=== PATIENT | male | born 1995 | race Caucasian/White ===

== ENCOUNTER 2017-08-20 10:38 | Inpatient (IN) | payer BC, OTHER ==
[~2017-08-20] VITALS: Ht 188 cm; Wt 86.2 kg
[2017-08-20] MEDS ORDERED: NS IV 1000 ML 1,000 ML IV SCH ×2 (10:45→12:45)
[2017-08-20] MEDS ORDERED: IBUPROFEN 800 MG (MOTRIN) TAB PO ONE (10:45)
--- NOTE | 2017-08-20 10:51 | ED General ---
General Stated Complaint: POST PROCEDURE ALLERGIC REACTION,FEVER Source of Information: Patient Exam Limitations: No Limitations History of Present Illness Time Seen by Provider: 10:47 Initial Comments To ER wit c/o sudden onset fever today up to "107" at home. He had outpatient wart removal by Dr Garcia yesterday afternoon to left hand and is concerned these symptoms may represent an allergic reaction. He does report increased swelling/ pain in the left hand. He did develop a sore throat and a cough today as well. Was started on medrol dosepak and antibiotics at home and states that he took the first doses of these last night and also took his dose this morning. Primary care is Dr. Hammonds in [place]. He is employed at [employer] in [place]. His accompanies him to ER. Timing/Duration: 1-2 Days Severity: Moderate Associated Systoms: Cough, Fever/Chills, Malaise Allergies and Home Medications Allergies Coded Allergies: No Known Drug Allergies (Unverified , 08/20/17) Constitutional: see HPI, chills, fever EENTM: see HPI, throat pain Respiratory: see HPI, cough Cardiovascular: no symptoms reported Genitourinary: no symptoms reported Musculoskeletal: no symptoms reported Skin: no symptoms reported Psychiatric/Neurological: No Symptoms Reported Hematologic/Lymphatic: No Symptoms Reported Immunological/Allergic: no symptoms reported Past Gwbceqp-Pjhwyl-Iceuir Hx Patient Social History Recent Foreign Travel: No Contact w/Someone Who Travel: No Physical Exam Vital Signs Vital Sign - Last 12Hours 08/20/17 10:40 Temp 103.5 Pulse 108 Resp 14 B/P (MAP) 148/86 Pulse Ox 98 O2 Delivery Room Air Capillary Refill : General Appearance: No Apparent Distress, WD/WN Eyes: Bilateral Eye Normal Inspection, Bilateral Eye PERRL, Bilateral Eye EOMI HEENT: PERRL/EOMI, TMs Normal, Pharyngeal Erythema Neck: Full Range of Motion, Normal Inspection Respiratory: Normal Breath Sounds, No Accessory Muscle Use, No Respiratory Distress Cardiovascular: Normal Peripheral Pulses, Tachycardia Gastrointestinal: Normal Bowel Sounds, Non Tender, Soft Extremity: Normal Capillary Refill, Normal Inspection, Other (there is significant swelling to the left hand with surrounding erythema. The incision is intact there is some serosanguineous drainage from this to the ulnar side dorsal aspect left wrist. Culture of this drainage was collected and sent to lab.) Neurologic/Psychiatric: Alert, Oriented x3, No Motor/Sensory Deficits Skin: Normal Color, Warm/Dry Focused Exam Evaluation Lactate Level Laboratory Tests 08/20/17 11:25: Lactic Acid Level 1.56 Lactic Acid Level Laboratory Tests Test 08/20/17 11:25 Lactic Acid Level 1.56 MMOL/L (0.50-2.00) Progress/Results/Core Measures Suspected Sepsis SIRS Temperature: Pulse: Respiratory Rate: Laboratory Tests 08/20/17 10:45: White Blood Count 24.6H Blood Pressure / Mean: Laboratory Tests 08/20/17 11:25: Lactic Acid Level 1.56 Laboratory Tests 08/20/17 10:45: Creatinine 0.97, Platelet Count 216, Total Bilirubin 0.7 Results/Orders Lab Results Laboratory Tests Test 08/20/17 10:45 08/20/17 11:05 08/20/17 11:25 Range/Units White Blood Count 24.6 H 4.3-11.0 10^3/uL Red Blood Count 5.02 4.35-5.85 10^6/uL Hemoglobin 14.5 13.3-17.7 G/DL Hematocrit 41 40-54 % Mean Corpuscular Volume 82 80-99 FL Mean Corpuscular Hemoglobin 29 25-34 PG Mean Corpuscular Hemoglobin Concent 36 32-36 G/DL Red Cell Distribution Width 11.5 10.0-14.5 % Platelet Count 216 130-400 10^3/uL Mean Platelet Volume 9.1 7.4-10.4 FL Neutrophils (%) (Auto) 92 H 42-75 % Lymphocytes (%) (Auto) 2 L 12-44 % Monocytes (%) (Auto) 6 0-12 % Eosinophils (%) (Auto) 0 0-10 % Basophils (%) (Auto) 0 0-10 % Neutrophils # (Auto) 22.5 H 1.8-7.8 X 10^3 Lymphocytes # (Auto) 0.5 L 1.0-4.0 X 10^3 Monocytes # (Auto) 1.5 H 0.0-1.0 X 10^3 Eosinophils # (Auto) 0.0 0.0-0.3 10^3/uL Basophils # (Auto) 0.0 0.0-0.1 10^3/uL Neutrophils % (Manual) 87 % Lymphocytes % (Manual) 2 % Monocytes % (Manual) 3 % Band Neutrophils 8 % Toxic Granulation 1+ Blood Morphology Comment NORMAL Sodium Level 136 135-145 MMOL/L Potassium Level 4.0 3.6-5.0 MMOL/L Chloride Level 104 98-107 MMOL/L Carbon Dioxide Level 22 21-32 MMOL/L Anion Gap 10 5-14 MMOL/L Blood Urea Nitrogen 13 7-18 MG/DL Creatinine 0.97 0.60-1.30 MG/DL Estimat Glomerular Filtration Rate > 60 BUN/Creatinine Ratio 13 Glucose Level 134 H 70-105 MG/DL Calcium Level 9.4 8.5-10.1 MG/DL Total Bilirubin 0.7 0.1-1.0 MG/DL Aspartate Amino Transf (AST/SGOT) 17 5-34 U/L Alanine Aminotransferase (ALT/SGPT) 23 0-55 U/L Alkaline Phosphatase 60 40-136 U/L C-Reactive Protein High Sensitivity 3.94 H 0.00-0.50 MG/DL Total Protein 7.6 6.4-8.2 GM/DL Albumin 4.2 3.2-4.5 GM/DL Monoscreen NEGATIVE NEGATIVE Group A Streptococcus Screen NEGATIVE NEGATIVE Lactic Acid Level 1.56 0.50-2.00 MMOL/L Micro Results Microbiology 08/20/17 Influenza Types A,B Antigen (TERRY) - Final, Complete My Orders Orders - DIALLO KUMAR APRN Cbc With Automated Diff (08/20/17 10:45) Comprehensive Metabolic Panel (08/20/17 10:45) Hs C Reactive Protein (08/20/17 10:45) Saline Lock/Iv-Start (08/20/17 10:45) Ibuprofen Tablet (Motrin Tablet) (08/20/17 10:45) Ns Iv 1000 Ml (Sodium Chloride 0.9%) (08/20/17 10:45) Rapid Strep A Screen (08/20/17 10:45) Monotest (08/20/17 10:45) Influenza A And B Antigens (08/20/17 10:45) Chest Pa/Lat (2 View) (08/20/17 10:45) Manual Differential (08/20/17 10:45) Blood Culture (08/20/17 11:20) Lactic Acid Analyzer (08/20/17 11:20) Ceftriaxone Injection (Rocephin Injectio (08/20/17 11:45) Vancomycin Injection (Vancomycin Injecti (08/20/17 11:45) Wound Culture (08/20/17 11:44) Acetaminophen Tablet (Tylenol Tablet) (08/20/17 12:00) Ua Culture If Indicated (08/20/17 11:57) Medications Given in ED Current Medications Medications Dose Ordered Sig/Aye Route Start Time Stop Time Status Last Admin Dose Admin Acetaminophen 1,000 mg ONCE ONCE PO 08/20/17 12:00 08/20/17 12:01 DC 08/20/17 11:59 1,000 MG Ceftriaxone Sodium 1000 mg/ Sodium Chloride 50 ml @ 100 mls/hr ONCE ONCE IV 08/20/17 11:45 08/20/17 12:14 08/20/17 11:56 100 MLS/HR Ibuprofen 800 mg ONCE ONCE PO 08/20/17 10:45 08/20/17 10:48 DC 08/20/17 10:53 800 MG Vital Signs/I&O Vital Sign - Last 12Hours 08/20/17 10:40 Temp 103.5 Pulse 108 Resp 14 B/P (MAP) 148/86 Pulse Ox 98 O2 Delivery Room Air Capillary Refill : Diagnostic Imaging Diagonstic Imaging: Xray Comments NAME: BONITA RICO MED REC#: [id number] PT STATUS: REG ER : 1995 PHYSICIAN: DIALLO KUMAR APRN ADMIT DATE: 08/20/17/ER Draft Date of Exam:08/20/17 CHEST PA/LAT (2 VIEW) INDICATION: Fever and dyspnea PA and lateral views of the chest are obtained. No previous studies available at this time for comparison. FINDINGS: Heart size and pulmonary vascularity are within normal limits, and the lungs are clear, bilaterally. IMPRESSION: Unremarkable chest. Dictated on workstation # [id number] Dict: 08/20/17 1111 Trans: 08/20/17 1119 HYACINTH [id number] Interpreted by: ZAID EARL MD Electronically signed by: Departure Communication (Admissions) Time/Spoke to Admitting Phy: 12:[address] Simons. She agrees to accept the admission, Rocephin and vancomycin Time/Spoke to Consulting Phy: 12:05 Communication/Consulting I did discuss with Dr. Garcia. He agrees to consult. Progress Notes 1153- BP 124/63 Temp 103. 1 liter IVF has infused, rocephin and vancomycin ordered as well as 1 g tylenol. Impression Impression: Primary Impression: Cellulitis of left upper extremity Additional Impressions: Sepsis Viral syndrome Disposition: ADMITTED INPATIENT Condition: Stable Admissions Decision to Admit Reason: Admit from ER (General) Decision to Admit/Date: Aug 20, 2017 Time/Decision to Admit Time: 11:54 Departure-Patient Inst. Referrals: JOHNSON CRABTREE MD (PCP/Family) Primary Care Physician DIALLO KUMAR APRN Aug 20, 2017 10:51
[2017-08-20 10:59] LABS: BASOPHILS % (AUTO) 0 % (0-10); EOSINOPHILS % (AUTO) 0 % (0-10); LYMPHOCYTES # (AUTO) 0.5 X 10^3 (1.0-4.0); LYMPHOCYTES % (AUTO) 2 % (12-44); MEAN CORPUSCULAR HEMOGLOBIN 29 PG (25-34); MEAN CORPUSCULAR HGB CONC 36 G/DL (32-36); MEAN CORPUSCULAR VOLUME 82 FL (80-99); MEAN PLATELET VOLUME 9.1 FL (7.4-10.4); MONOCYTES # (AUTO) 1.5 X 10^3 (0.0-1.0); MONOCYTES % (AUTO) 6 % (0-12); NEUTROPHILS # (AUTO) 22.5 X 10^3 (1.8-7.8); NEUTROPHILS % (AUTO) 92 % (42-75); PLATELET COUNT 216 10^3/uL (130-400); RED BLOOD COUNT 5.02 10^6/uL (4.35-5.85); RED CELL DISTRIBUTION WIDTH 11.5 % (10.0-14.5); WHITE BLOOD COUNT 24.6 10^3/uL (4.3-11.0)
[2017-08-20 11:13] LABS: ALANINE AMINOTRANSFERASE 23 U/L (0-55); ALBUMIN 4.2 GM/DL (3.2-4.5); ANION GAP 10 MMOL/L (5-14); ASPARTATE AMINO TRANSFERASE 17 U/L (5-34); BILIRUBIN,TOTAL 0.7 MG/DL (0.1-1.0); BLOOD UREA NITROGEN 13 MG/DL (7-18); BUN/CREATININE RATIO 13; CALCIUM 9.4 MG/DL (8.5-10.1); CARBON DIOXIDE 22 MMOL/L (21-32); CHLORIDE 104 MMOL/L (98-107); CREATININE SERUM 0.97 MG/DL (0.60-1.30); GFR ESTIMATED > 60; GLUCOSE 134 MG/DL (70-105); SODIUM 136 MMOL/L (135-145); TOTAL PROTEIN 7.6 GM/DL (6.4-8.2); hs C REACTIVE PROTEIN 3.94 MG/DL (0.00-0.50)
--- NOTE | 2017-08-20 11:19 | Diagnostic Imaging Report ---
INDICATION: Fever and dyspnea PA and lateral views of the chest are obtained. No previous studies available at this time for comparison. FINDINGS: Heart size and pulmonary vascularity are within normal limits, and the lungs are clear, bilaterally. IMPRESSION: Unremarkable chest. Dictated by: Dictated on workstation # [id number]
[2017-08-20 11:25] LABS: BAND NEUTROPHILS 8 %; LYMPHOCYTES % (MANUAL) 2 %; NEUTROPHILS % (MANUAL) 87 %
[2017-08-20] MEDS ORDERED: VANCOMYCIN INJECTION 1,500 MG in NS IV 500 ML 500 ML IV SCH (11:45)
[2017-08-20] MEDS ORDERED: cefTRIAXone INJECTION 1,000 MG in NS (IVPB) 50 ML IV ONE (11:45)
[2017-08-20] MEDS ORDERED: ACETAMINOPHEN 500 MG TAB (TYLENOL) PO ONE (12:00)
[2017-08-20] MEDS ORDERED: CATHETER FLUSH 10 ML SYR IV PRN (12:45)
[2017-08-20] MEDS ORDERED: ACETAMINOPHEN 325 MG TABLET/CAPLET (TYLENOL) PO PRN (12:45)
[2017-08-20] MEDS ORDERED: HYDROcodone/APAP 5 MG/325 MG (LORTAB) TAB PO PRN (13:00)
[2017-08-20] MEDS ORDERED: fentaNYL INJECTION 100 MCG/2 ML AMP IVP PRN (13:00)
[2017-08-20] MEDS ORDERED: SODIUM CHLORIDE IV NR ×2 (13:00)
[2017-08-20] MEDS ORDERED: VANCOMYCIN IV NR ×2 (13:00)
[2017-08-20] MEDS ORDERED: VANCOMYCIN INJECTION 0.1 MG in NS (IVPB) 250 ML IV SCH (13:00)
[2017-08-20 13:01] VITALS: BP 135/67
--- NOTE | 2017-08-20 13:23 | History & Physical-Hospitalist ---
HPI History of Present Illness: HPI/Chief Complaint Pt is a 22yCF who underwent an outpatient wart removal yesterday with Dr. Garcia. He reports the surgery went well and then this morning he developed a high fever (reportedly ~106) along with chills and body aches. He had a slight headache at the time as well. He called Dr Garcia's office and was told to go to the ER for evaluation. He has also noticed hand swelling and redness. He denies any other complaints and had been feeling well up until this morning. Though per ER note he was start on a medrol dosepak and antibiotics last night. He was found to have a WBC of ~24k, fever of 103, and was tachycardiac meeting sepsis criteria and admitted for IV abx. Source: patient Date Seen 08/20/17 Time Seen by Provider: 13:00 Attending Physician Antonio Cobian MD PCP Hubert Triplett MD Referring Physician Date of Admission Aug 20, 2017 at 11:38 am Home Medications & Allergies Home Medications Reviewed patient Home Medication Reconciliation Form Allergies Allergies Coded Allergies No Known Drug Allergies (Dmotmnugrl65/22/17) Past Srqqqpq-Cewwop-Xjdore Hx Patient Social History Marrital Status: Employed/Student: employed Alcohol Use: Occasionally Uses Recreational Drug Use: No Smoking Status: Never a Smoker 2nd Hand Smoke Exposure: No Recent Foreign Travel: No Contact w/other who traveled: No Recent Hopitalizations: No Recent Infectious Disease Expo: No Seasonal Allergies Seasonal Allergies: No Surgeries Yes (WART REMOVED) Appendectomy Respiratory No Cardiovascular No Neurological No Genitourinary No Gastrointestinal No Musculoskeletal No Endocrine History of Endocrine Disorders: No HEENT History of HEENT Disorders: No Cancer No Psychosocial History of Psychiatric Problem: No Integumentary History of Skin or Integumenta: No Family Medical History Significant Family History: Diabetes (grandparents) Review of Systems Constitutional: No chills, No fever EENTM: No blurred vision, No double vision, No nose congestion, No throat pain Respiratory: No cough, No dyspnea on exertion, No short of breath Cardiovascular: No chest pain, No edema, No palpitations Gastrointestinal: No abdominal pain, No constipation, No diarrhea, No nausea, No vomiting Genitourinary: No dysuria, No frequency Musculoskeletal: other (left hand swelling and pain) Skin: No lesions, No rash Psychiatric/Neurological: Denies Headache, Denies Numbness, Denies Paresthesia , Denies Tingling Physical Exam Physical Exam Vital Signs Vital Sign - Last 12Hours 08/20/17 10:40 Temp 103.5 Pulse 108 Resp 14 B/P (MAP) 148/86 Pulse Ox 98 O2 Delivery Room Air Capillary Refill : Less Than 3 Seconds General Appearance: No Apparent Distress, WD/WN HEENT: PERRL/EOMI, Moist Mucous Membranes Neck: Non Tender, Supple Respiratory: Lungs Clear, No Respiratory Distress Cardiovascular: Regular Rate, Rhythm, No Murmur Gastrointestinal: Normal Bowel Sounds, Non Tender, Soft Extremity: Normal Capillary Refill, No Calf Tenderness, Other (edema of left hand (mostlyon the dorsum), line of demarcation noted with almost no identifiable erythema) Neurologic/Psychiatric: Alert, Oriented x3, Normal Mood/Affect Skin: Normal Color, Warm/Dry Results Results/Procedures Lab Laboratory Tests 08/20/17 10:45 Assessment/Plan Admission Diagnosis Sepsis due to Cellulitis Diagnosis/Problems Diagnosis/Problems (1) Sepsis Status: Acute Assessment & Plan: 3/4 SIRS and apparent cellulitis of LUE Vanc and Rocephin started in ER Will continue until cultures available but likely MSSA given quick onset and already improved erythema Blood and wound cultures obtained in ER Lactic normal, no hypotension- not severe sepsis Tylenol for fever Qualifiers: Qualified Codes: A41.9 - Sepsis, unspecified organism (2) Cellulitis of left upper extremity Status: Acute Assessment & Plan: As above Will consult Dr Garcia as this is site of wart removal (3) Elevated blood pressure reading Status: Acute Assessment & Plan: Likely due to pain Trend (4) Prophylactic measure Assessment & Plan: NS at 100ml/hr SCDs Reg Diet ANTONIO COBIAN MD Aug 20, 2017 1:23 pm
[2017-08-20] MEDS ORDERED: INFLUENZA TRIvalent 2017-2018 0.5 ML/45 MCG SYR IM ONE (14:00)
[2017-08-20] MEDS ORDERED: METH4TAB10 PO (14:09)
[2017-08-20] MEDS ORDERED: AMOX1TAB12 PO (14:09)
[2017-08-20] MEDS ORDERED: HYDR-3820 PO (14:09)
[2017-08-20] MEDS: NS IV 1000 ML 1,000 ML IV SCH ×2 (14:12→23:14)
[2017-08-20 14:52] LABS: BILIRUBIN,URINE NEGATIVE (NEGATIVE); KETONES,URINE NEGATIVE (NEGATIVE); LEUKOCYTE ESTERASE ,URINE NEGATIVE (NEGATIVE); NITRITE,URINE NEGATIVE (NEGATIVE); PH,URINE 6.5 (5-9); PROTEIN,URINE NEGATIVE (NEGATIVE); UROBILINOGEN,URINE NORMAL (NORMAL)
[2017-08-20 15:02] LABS: SQUAMOUS EPITHELIAL CELL,UR RARE /HPF
[2017-08-20 16:00] VITALS: BP 109/70
--- NOTE | 2017-08-20 17:37 | CONSULTATION REPORT ---
DATE OF SERVICE: 08/20/2017 PRIMARY CARE PHYSICIAN: Dr. Hubert Triplett. ADMITTING PHYSICIAN: Dr. Jessica Cobian. HISTORY OF PRESENT ILLNESS: The patient is a 22-year-old male known to us. 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 He states that he developed a wart-like lesion along the dorsal surface of his left wrist for several weeks and this had become irritated with the amount of activities that he did. He reported developing a mild surrounding redness and erythema around the area, which became irritating. He underwent excision of a lesion in the office yesterday. He reports that he did well; however, last night developed some swelling in the region as well as pain. He woke up and the pain was significantly worse. He was seen in the office again and started on prednisone-tapering dose as well as antibiotics. He reports that once they went home, he felt worse and developed fevers and fatigue. He was seen in Emergency Department and underwent workup and was found to have a leukocytosis of approximately 23.5 as well as a fever of 103. Upon examination, he does have fresh excision site of skin lesion with surrounding edema along the dorsal aspect of the wrist extending into the hand. This does not go proximal to the wrist. He is since being admitted and placed on IV antibiotics as well as fluids. He states that he has felt much better. He can move all of his fingers and there are no signs of compartment syndrome of the hand. PAST MEDICAL HISTORY: None. PAST SURGICAL HISTORY: Appendectomy. ALLERGIES: No known drug allergies. MEDICATIONS: None. SOCIAL HISTORY: Negative smoke, social alcohol. FAMILY HISTORY: Noncontributory. VITAL SIGNS: Temperature 100.3. Systolic blood pressure is stable in the 120s. Heart rate in the 60s to 80s. REVIEW OF SYSTEMS: Well-nourished male, currently in no acute distress. He is not experiencing any shortness of breath or difficulty breathing. No chest pain, palpitations, or diaphoresis. No nausea or vomiting. No diarrhea or constipation. Mild chill this morning and found to have hyperpyrexia by thermometer later this morning. No recent inadvertent weight loss. All other review of systems negative. PHYSICAL EXAMINATION: CHEST: Clear. Good breath sounds bilaterally. HEART: Regular, no murmurs. HEENT: No scleral icterus. NECK: No cervical lymphadenopathy. EXTREMITIES: No lower extremity edema, negative Homans' sign. ABDOMEN: Soft, nontender, nondistended. SKIN: There is edema along the dorsal aspect of the distal left wrist extending into the hand and fingers. He can move all fingers with minimal discomfort. There are no signs of compartment syndrome. He has full sensation. The wound is clean with clear serous drainage. LABORATORY DATA: WBC 24.6, hemoglobin 14.5, hematocrit 41, platelets 216, BUN 13, creatinine 0.97. [place] screen negative. Group A streptococcus negative. ASSESSMENT AND PLAN: 22-year-old male with a cellulitis of the dorsal aspect of the distal left wrist and hand with fever and chills. We are unsure if his symptoms are related to an early infection versus an allergic reaction. This may be coexisting with a viral etiology as well. Since being admitted and placed on IV fluids and IV antibiotics, he has felt considerably better and has had decreased swelling and edema. The sutures were removed and only clear fluid was identified within clean margins of the skin excision site. This was packed with wet to dry dressing followed by a cling wrap followed by a 2-inch Tra wrap from the mid hand to above the wrist. If his clinical status improves despite the leukocytosis, which may be secondary to the steroids, we will recommend discharging him home and to proceed with wet to dry dressing changes, compression and elevation on a b.i.d. basis and he may be discharged to home and have him follow up in the office in approximately 1 week for reevaluation. Job ID: [id number] DocumentID: [id number] Dictated Date: 08/20/2017 16:41:54 Inside Wireman Date: 08/20/2017 17:36:57 Dictated By: WILIAM CHACKO MD [facility]EE HOSPITALBrittany
[2017-08-20] MEDS: IBUPROFEN 800 MG (MOTRIN) TAB PO PRN (19:35)
[2017-08-20] MEDS: ACETAMINOPHEN 500 MG TAB (TYLENOL) PO PRN (19:35)
[2017-08-20 20:19] VITALS: BP 133/75
[2017-08-20] MEDS: VANCOMYCIN 1500 MG/NS 500 ML IVPB IV SCH ×2 (23:14)
[2017-08-21] VITALS: BP 112/52
[2017-08-21 04:00] VITALS: BP 123/59
[2017-08-21 05:34] LABS: BASOPHILS % (AUTO) 0 % (0-10); EOSINOPHILS # (AUTO) 0.1 10^3/uL (0.0-0.3); EOSINOPHILS % (AUTO) 0 % (0-10); LYMPHOCYTES # (AUTO) 0.7 X 10^3 (1.0-4.0); LYMPHOCYTES % (AUTO) 3 % (12-44); MEAN CORPUSCULAR HEMOGLOBIN 29 PG (25-34); MEAN CORPUSCULAR HGB CONC 35 G/DL (32-36); MEAN CORPUSCULAR VOLUME 83 FL (80-99); MEAN PLATELET VOLUME 9.4 FL (7.4-10.4); MONOCYTES # (AUTO) 1.9 X 10^3 (0.0-1.0); MONOCYTES % (AUTO) 7 % (0-12); NEUTROPHILS # (AUTO) 25.4 X 10^3 (1.8-7.8); NEUTROPHILS % (AUTO) 90 % (42-75); PLATELET COUNT 186 10^3/uL (130-400); RED BLOOD COUNT 4.53 10^6/uL (4.35-5.85); RED CELL DISTRIBUTION WIDTH 11.9 % (10.0-14.5); WHITE BLOOD COUNT 28.2 10^3/uL (4.3-11.0)
[2017-08-21 05:50] LABS: ANION GAP 9 MMOL/L (5-14); BLOOD UREA NITROGEN 12 MG/DL (7-18); BUN/CREATININE RATIO 15; CALCIUM 8.8 MG/DL (8.5-10.1); CARBON DIOXIDE 23 MMOL/L (21-32); CHLORIDE 109 MMOL/L (98-107); CREATININE SERUM 0.79 MG/DL (0.60-1.30); GFR ESTIMATED > 60; GLUCOSE 109 MG/DL (70-105); POTASSIUM 4.2 MMOL/L (3.6-5.0); SODIUM 141 MMOL/L (135-145)
[2017-08-21] MEDS: IBUPROFEN 800 MG (MOTRIN) TAB PO PRN (05:50)
[2017-08-21] MEDS ORDERED: CEPH-507 PO (07:02)
[2017-08-21 08:00] VITALS: BP 109/52
[2017-08-21] MEDS: NS IV 1000 ML 1,000 ML IV SCH (09:00)
[2017-08-21] MEDS ORDERED: cefTRIAXone 1 GM/NS 50 ML IVPB IV SCH ×2 (09:00)
[2017-08-21] MEDS ORDERED: cefTRIAXone INJECTION 1,000 MG in NS (IVPB) 50 ML IV SCH (09:00)
--- NOTE | 2017-08-21 09:55 | Discharge Summary-Hospitalist ---
Diagnosis/Chief Complaint Date of Admission Aug 20, 2017 at 11:38 am Date of Discharge Admission Diagnosis Sepsis due to Cellulitis Discharge Diagnosis (1) Sepsis Status: Resolved Assessment & Plan: 3/4 SIRS present on admission and apparent cellulitis of LUE Received 2 days IV abx inpatient GAS on culture Was on Augmentin prior to admission so will escalate to Keflex (2) Cellulitis of left upper extremity Status: Acute Assessment & Plan: As above Dr Chacko consulted, appreciate recs (3) Elevated blood pressure reading Status: Resolved Assessment & Plan: Likely due to pain Trend (4) Prophylactic measure Assessment & Plan: NS at 100ml/hr SCDs Reg Diet Discharge Summary Consultations Dr Chacko, surgery Discharge Physical Examination Allergies: Coded Allergies: No Known Drug Allergies (Unverified , 08/20/17) Vitals & I&Os Vital Signs Date Time Temp Pulse Resp B/P (MAP) Pulse Ox O2 Delivery O2 Flow Rate FiO2 08/21/17 08:00 98.9 88 24 109/52 96 Room Air Hospital Course Pt presented to the ER with CC of hand swelling and pain and was found to have sepsis due to cellulitis of the hand following wart removal the day prior to admission. He was admitted for IV abx has he had already failed outpatient Augmentin. His symptoms improved dramatic with abx. Cultures grew GAS and he was transitioned to oral Keflex after receiving 2 days IV abx. He is to follow up with Dr Chacko in 1 week. Labs (last 24 hrs) Laboratory Tests 08/20/17 10:45: White Blood Count 24.6H, Red Blood Count 5.02, Hemoglobin 14.5, Hematocrit 41, Mean Corpuscular Volume 82, Mean Corpuscular Hemoglobin 29, Mean Corpuscular Hemoglobin Concent 36, Red Cell Distribution Width 11.5, Platelet Count 216, Mean Platelet Volume 9.1, Neutrophils (%) (Auto) 92H, Lymphocytes (%) (Auto) 2L , Monocytes (%) (Auto) 6, Eosinophils (%) (Auto) 0, Basophils (%) (Auto) 0, Neutrophils # (Auto) 22.5H, Lymphocytes # (Auto) 0.5L, Monocytes # (Auto) 1.5H, Eosinophils # (Auto) 0.0, Basophils # (Auto) 0.0, Neutrophils % (Manual) 87, Lymphocytes % (Manual) 2, Monocytes % (Manual) 3, Band Neutrophils 8, Toxic Granulation 1+, Blood Morphology Comment NORMAL, Sodium Level 136, Potassium Level 4.0, Chloride Level 104, Carbon Dioxide Level 22, Anion Gap 10, Blood Urea Nitrogen 13, Creatinine 0.97, Estimat Glomerular Filtration Rate > 60, BUN/ Creatinine Ratio 13, Glucose Level 134H, Calcium Level 9.4, Total Bilirubin 0.7 , Aspartate Amino Transf (AST/SGOT) 17, Alanine Aminotransferase (ALT/SGPT) 23, Alkaline Phosphatase 60, C-Reactive Protein High Sensitivity 3.94H, Total Protein 7.6, Albumin 4.2, Monoscreen NEGATIVE 08/20/17 11:05: Group A Streptococcus Screen NEGATIVE 08/20/17 11:25: Lactic Acid Level 1.56 08/20/17 14:45: Urine Color YELLOW, Urine Clarity CLEAR, Urine pH 6.5, Urine Specific [place] 1.010L, Urine Protein NEGATIVE, Urine Glucose (UA) NEGATIVE, Urine Ketones NEGATIVE, Urine Nitrite NEGATIVE, Urine Bilirubin NEGATIVE, Urine Urobilinogen NORMAL, Urine Leukocyte Esterase NEGATIVE, Urine RBC (Auto) NEGATIVE, Urine RBC NONE, Urine WBC NONE, Urine Squamous Epithelial Cells RARE, Urine Crystals NONE , Urine Bacteria NEGATIVE, Urine Casts NONE, Urine Mucus NEGATIVE, Urine Culture Indicated NO 08/21/17 05:10: White Blood Count 28.2H, Red Blood Count 4.53, Hemoglobin 13.1L, Hematocrit 38L , Mean Corpuscular Volume 83, Mean Corpuscular Hemoglobin 29, Mean Corpuscular Hemoglobin Concent 35, Red Cell Distribution Width 11.9, Platelet Count 186, Mean Platelet Volume 9.4, Neutrophils (%) (Auto) 90H, Lymphocytes (%) (Auto) 3L , Monocytes (%) (Auto) 7, Eosinophils (%) (Auto) 0, Basophils (%) (Auto) 0, Neutrophils # (Auto) 25.4H, Lymphocytes # (Auto) 0.7L, Monocytes # (Auto) 1.9H, Eosinophils # (Auto) 0.1, Basophils # (Auto) 0.0, Sodium Level 141, Potassium Level 4.2, Chloride Level 109H, Carbon Dioxide Level 23, Anion Gap 9, Blood Urea Nitrogen 12, Creatinine 0.79, Estimat Glomerular Filtration Rate > 60, BUN/ Creatinine Ratio 15, Glucose Level 109H, Calcium Level 8.8 Microbiology 08/20/17 Influenza Types A,B Antigen (TERRY) - Final, Complete 08/20/17 Gram Stain - Final, Resulted 08/20/17 Wound Culture - Preliminary, Resulted Strep, Beta Hemolytic Group A Pending Labs Laboratory Tests 08/21/17 05:10: White Blood Count 28.2, Red Blood Count 4.53, Hemoglobin 13.1, Hematocrit 38, Mean Corpuscular Volume 83, Mean Corpuscular Hemoglobin 29, Mean Corpuscular Hemoglobin Concent 35, Red Cell Distribution Width 11.9, Platelet Count 186, Mean Platelet Volume 9.4, Neutrophils (%) (Auto) 90, Lymphocytes (%) (Auto) 3, Monocytes (%) (Auto) 7, Eosinophils (%) (Auto) 0, Basophils (%) (Auto) 0, Neutrophils # (Auto) 25.4, Lymphocytes # (Auto) 0.7, Monocytes # (Auto) 1.9, Eosinophils # (Auto) 0.1, Basophils # (Auto) 0.0, Sodium Level 141, Potassium Level 4.2, Chloride Level 109, Carbon Dioxide Level 23, Anion Gap 9, Blood Urea Nitrogen 12, Creatinine 0.79, Estimat Glomerular Filtration Rate > 60, BUN/ Creatinine Ratio 15, Glucose Level 109, Calcium Level 8.8 Discharge Home Medications: Active Scripts Active Keflex (Cephalexin) 500 Mg Capsule 500 Mg PO BID Reported Hydrocodon-Acetaminophn 10-325 (Hydrocodone/Acetaminophen) 1 Each Tablet 1 Tab PO Q4H PRN Methylprednisolone 4 Mg Tab.ds.pk PO UD 6 Days 6 DAY SUPPLY FILLED 08-20-17 TAKE DIRECTED Amox Tr-K Clv 875-125 mg Tab (Amoxicillin/Potassium Clav) 1 Each Tablet 1 Tab PO BID 10 Days 10 DAY SUPPLY FILLED 08-20-17 Instructions to patient/family Please see electronic discharge instructions given to patient. Clinical Quality Measures DVT/VTE Risk/Contraindication: Risk Factor Score Per Nursin RFS Level Per Nursing on Admit: 1=Low/No VTE PPX Sepsis: Within 3hrs of presentation: Admin ABX, Blood cultures prior to ABX's, D/C Instructions given to patient, Lactate level Copy Copies To 1: WILIAM CHACKO MD; JOHNSON CRABTREE MD Problem Qualifiers (1) Sepsis: Sepsis type: sepsis due to unspecified organism Qualified Codes: A41.9 - Sepsis, unspecified organism ANTONIO BALTAZAR MD Aug 21, 2017 9:55 am
[2017-08-21] MEDS: VANCOMYCIN 1500 MG/NS 500 ML IVPB IV SCH ×2 (10:08)
[2017-08-21] MEDS: ACETAMINOPHEN 500 MG TAB (TYLENOL) PO PRN (10:13)
--- OUTSIDE RECORDS SUMMARY | 2017-08-21 13:18 | XMS REPORT | Continuity of Care Document ---
Demographics Preferred Language Unknown Marital Status Unknown Rastafari Affiliation Unknown Race Unknown Ethnic Group Unknown Author Author [facility] Address Unknown Phone Unavailable Allergies Medications Problems Procedures Results Encounters ACCT No. Visit Date/Time Discharge Status Pt. Type Provider Facility Loc./Unit Complaint [id number] 12/09/2012 14:45:45 RECURRING
--- OUTSIDE RECORDS SUMMARY | 2017-08-21 13:21 | XMS REPORT | Continuity of Care Document ---
Demographics Preferred Language Unknown Marital Status Unknown Presybeterian Affiliation Unknown Race Unknown Ethnic Group Unknown Author Author [facility] Address Unknown Phone Unavailable Allergies Medications Problems Procedures Results Encounters ACCT No. Visit Date/Time Discharge Status Pt. Type Provider Facility Loc./Unit Complaint [id number] 12/09/2012 14:45:45 RECURRING
[2017-08-21] MEDS ORDERED: TROUGH ORDER-PHARMACY XX NR (22:00)
--- NOTE | 2017-08-22 11:37 | CONSULTATION REPORT ---
DATE OF SERVICE: ATTENDING PRIMARY CARE PHYSICIAN: Dr. Hubert Triplett. ADMITTING PHYSICIAN: Dr. Jessica Cobian. HISTORY OF PRESENT ILLNESS: The patient is a 22-year-old male known to us. 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 He developed a wart-like lesion along the dorsal surface of the left wrist for several weeks, which became irritated with the amount of activities that he does. He then reported a mild amount of redness and swelling around the area. He was seen in the office and the lesion was identified and was excised. There are no signs of infection at that time. Following morning, he felt fevers and fatigue and went to the Emergency Department and was found to have leukocytosis as well as fever. He was admitted and started on IV fluids and IV antibiotics and felt considerably better. Due to feeling better with less fevers, we decided to change him to oral antibiotics and discharge him home due to the patient's wishes and the holidays. He reports after being discharged home several hours later, he felt worse again. The swelling of the hand had worsened as well as the pain. Labs again were drawn, which did show a white count of 30. Upon examination, there is edema throughout the hand. There is no crepitance. There is a bulla along the aspect of the first and second webspace. The wound appears to be intact with a mild amount of purulent drainage. There is no drainable abscesses identified. An x-ray was also performed, which showed the potential for small well circumscribed foreign body. Since being admitted for the second time, he does feel better and his white count is coming down to 22 as well as his temperature. He is currently on Zosyn, vancomycin and clindamycin. His hand and forearm compartments are soft. PAST MEDICAL HISTORY: None. PAST SURGICAL HISTORY: Appendectomy. ALLERGIES: No known drug allergies. MEDICATIONS: BACTRIM, OMNICEF. SOCIAL HISTORY: Negative smoke, social alcohol. FAMILY HISTORY: Noncontributory. VITAL SIGNS: Temperature 100.5, blood pressure 104/52, pulse 87, respirations 18, pulse ox 93% on room air. REVIEW OF SYSTEMS: Well-nourished male currently in no acute distress. He is not experiencing any shortness of breath or difficulty breathing. No chest pain, palpitations, diaphoresis. Mild nausea, no vomiting, intermittent fevers and chills and fatigue. No recent inadvertent weight loss. All other review of systems negative. PHYSICAL EXAMINATION: CHEST: Clear. Good breath sounds bilaterally. HEART: Regular, no murmurs. EXTREMITIES: No lower extremity edema, negative Homans sign. HEENT: No scleral icterus. NECK: No cervical lymphadenopathy. ABDOMEN: Soft, nontender, nondistended. SKIN: There is diffuse edema of the hand, encompassing the palmar, volar and dorsal aspects of the hand and wrist with mild to moderate amount of redness and erythema along the wrist. There is no crepitance. There is a bulla along the first and second web space. There is a mild amount of purulent drainage from the open wound. There is no fluctuance to indicate any abscess. LABORATORY DATA: WBC 22.9, hemoglobin 11.0, hematocrit 32, platelets 169, BUN 9, creatinine 0.8. ASSESSMENT AND PLAN: 22-year-old male with strep pyogenes infection of the dorsal aspect of the left wrist. There is also edema most likely secondary to the previous compression dressing. He also does have surrounding redness and erythema consistent with continued cellulitis and infection. There is no crepitance and no severe pain identified. There is also no fluctuance to indicate any drainable abscess. At this time, we feel that this is a cellulitis; however, we will watch him very closely for necrotizing soft tissue infection. We will continue with the current triple antibiotic regimen and proceed with elevation of the arm at all times and wet to dry dressing changes b.i.d. followed by [facility]. Job ID: [id number] DocumentID: [id number] Dictated Date: 08/22/2017 11:05:17 Sap Pi Developer Date: 08/22/2017 11:36:32 Dictated By: WILIAM CHACKO MD [facility]
== END 2017-08-21 12:30 | disposition home or self-care (01) | DRG 872 ==
LOC: EDUNIT# 10:38 → ER 10:41 → 4TH 11:38
PROVIDERS: ADMIT Family Medicine; ATTEND Family Medicine
DX: A41.9 Sepsis, unspecified organism (principal); L03.114 Cellulitis of left upper limb; B95.0 Streptococcus, group A, as the cause of diseases classified elsewhere
CPT/HCPCS: 36415; 71020; 80048; 80053; 81000; 83605; 85007; 85025; 85027; 86141; 86308; 87040; 87070; 87205; 87430; 87804

== ENCOUNTER 2017-08-21 15:57 | Inpatient (IN) | payer BC ==
[~2017-08-21] VITALS: Ht 188 cm; Wt 88.2 kg
[~2017-08-21 15:57] MED LIST: AMOX1TAB12 PO; CEPH-507 PO; HYDR-3820 PO; METH4TAB10 PO
--- OUTSIDE RECORDS SUMMARY | 2017-08-21 16:02 | XMS REPORT | Continuity of Care Document ---
Demographics Preferred Language Unknown Marital Status Unknown Yazidism Affiliation Unknown Race Unknown Ethnic Group Unknown Author Author Counts Include [facility] Address Unknown Phone Unavailable Allergies Medications Problems Procedures Results Encounters ACCT No. Visit Date/Time Discharge Status Pt. Type Provider Facility Loc./Unit Complaint [id number] 12/09/2012 14:45:45 RECURRING
[2017-08-21 16:43] LABS: BASOPHILS % (AUTO) 0 % (0-10); EOSINOPHILS # (AUTO) 0.1 10^3/uL (0.0-0.3); EOSINOPHILS % (AUTO) 1 % (0-10); LYMPHOCYTES # (AUTO) 0.9 X 10^3 (1.0-4.0); LYMPHOCYTES % (AUTO) 3 % (12-44); MEAN CORPUSCULAR HEMOGLOBIN 29 PG (25-34); MEAN CORPUSCULAR HGB CONC 35 G/DL (32-36); MEAN CORPUSCULAR VOLUME 84 FL (80-99); MONOCYTES # (AUTO) 1.6 X 10^3 (0.0-1.0); MONOCYTES % (AUTO) 5 % (0-12); NEUTROPHILS # (AUTO) 28.2 X 10^3 (1.8-7.8); NEUTROPHILS % (AUTO) 91 % (42-75); PLATELET COUNT 191 10^3/uL (130-400); RED BLOOD COUNT 4.45 10^6/uL (4.35-5.85); RED CELL DISTRIBUTION WIDTH 11.9 % (10.0-14.5)
[2017-08-21 16:46] LABS: WHITE BLOOD COUNT 30.9 10^3/uL (4.3-11.0)
[2017-08-21 17:07] LABS: ALANINE AMINOTRANSFERASE 37 U/L (0-55); ALBUMIN 3.5 GM/DL (3.2-4.5); ANION GAP 8 MMOL/L (5-14); ASPARTATE AMINO TRANSFERASE 22 U/L (5-34); BILIRUBIN,TOTAL 0.5 MG/DL (0.1-1.0); BLOOD UREA NITROGEN 9 MG/DL (7-18); BUN/CREATININE RATIO 10; CALCIUM 9.3 MG/DL (8.5-10.1); CARBON DIOXIDE 26 MMOL/L (21-32); CHLORIDE 105 MMOL/L (98-107); CREATININE SERUM 0.86 MG/DL (0.60-1.30); GFR ESTIMATED > 60; GLUCOSE 117 MG/DL (70-105); POTASSIUM 4.1 MMOL/L (3.6-5.0); SODIUM 139 MMOL/L (135-145); TOTAL PROTEIN 6.9 GM/DL (6.4-8.2); hs C REACTIVE PROTEIN 35.13 MG/DL (0.00-0.50)
[2017-08-21] MEDS ORDERED: fentaNYL INJECTION 100 MCG/2 ML AMP IVP STA (17:19)
[2017-08-21] MEDS ORDERED: NS IV 1000 ML 1,000 ML IV ONE ×2 (17:19→18:09)
[2017-08-21 17:25] LABS: BAND NEUTROPHILS 11 %; BASOPHILS % (MANUAL) 0 %; EOSINOPHILS % (MANUAL) 0 %; LYMPHOCYTES % (MANUAL) 4 %; NEUTROPHILS % (MANUAL) 80 %
[2017-08-21] MEDS ORDERED: CLINDAMYCIN INJECTION 900 MG in NS (IVPB) 50 ML IV ONE (17:45)
--- NOTE | 2017-08-21 17:47 | ED Upper Extremity ---
General Chief Complaint: Upper Extremity Stated Complaint: ARM PAIN POST SURGERY Nursing Triage Note: PT AMBULATES TO ROOM 8 PT [facility], PT HAS INCREASED IN SWELLING,BLISTERS,PAIN, FEVER SINCE BEING RELEASED. CAP REFILL IN FINGERS SL GREATER THAN 3 SEC. PT HAS AREAS MARKED ON L HAND AND WRIST FROM REDNESS BEING MEASURED, RED STREAKING NOTED UP INTO L AXILLA. Nursing Sepsis Screen: Possible Sepsis Risk Source: patient Exam Limitations: no limitations History of Present Illness Time seen by provider: 16:15 Initial Comments 22-year-old male patient presents to the emergency Department with reports of increasing swelling, erythema, and pain of the left hand. Patient was released earlier today from [facility] for treatment of cellulitis. Reports increased malaise and fevers 102F at home. Patient was given Tylenol approximately one to 2 hours prior to arrival. reports patient had complained last night and this AM about the primitivo wrap feeling too tight. Now has blisters of the left fingers. Patient reportedly contacted Dr. Garcia and was told to return to the ED for re-evaluation. Patient had a recent wart removal from the left posterior wrist [address] Garcia's office. see H&P from yesterday's admission. Pain/Injury Location: left arm, left forearm, left hand, left thumb, left 2nd finger, left 3rd finger, left 4th finger, left 5th finger Modifying Factors: Worse With Movement, Worse With Other (worse with palpation. ) Allergies and Home Medications Allergies Coded Allergies: No Known Drug Allergies (Unverified , 08/21/17) Home Medications Cephalexin 500 Mg Capsule, 500 MG PO BID, #10 Prescribed by: ANTONIO COBIAN on 08/21/17 0702 Hydrocodone/Acetaminophen 1 Each Tablet, 1 TAB PO Q4H PRN for PAIN-MODERATE, ( Reported) Methylprednisolone 4 Mg Tab.ds.pk, PO UD for 6 Days, (Reported) 6 DAY SUPPLY FILLED 08-20-17 TAKE DIRECTED Constitutional: chills, fever, malaise Respiratory: no symptoms reported Cardiovascular: no symptoms reported Gastrointestinal: no symptoms reported Musculoskeletal: see HPI Skin: see HPI Psychiatric/Neurological: Denies Numbness, Denies Paresthesia, Denies Tingling , Denies Weakness All Other Systems Reviewed Negative Unless Noted: Yes (Negative excepted noted.) Past Kdkazuw-Jpjsyx-Rzmsrs Hx Patient Social History Alcohol Use: Occasionally Uses Number of Drinks Today: GG Alcohol Beverage of Choice: Beer, Whiskey Recreational Drug Use: No Smoking Status: Never a Smoker 2nd Hand Smoke Exposure: No Recent Foreign Travel: No Contact w/Someone Who Travel: No Recent Infectious Disease Expo: No Recent Hopitalizations: Yes (RELEASED FROM HOSP TODAY) Physical Abuse: No Sexual Abuse: No Seasonal Allergies Seasonal Allergies: No Surgeries History of Surgeries: Yes (WART REMOVED) Surgeries: Appendectomy Respiratory History of Respiratory Disorde: No Cardiovascular History of Cardiac Disorders: No Neurological History of Neurological Disord: No Genitourinary History of Genitourinary Disor: No Gastrointestinal History of Gastrointestinal Di: No Musculoskeletal History of Musculoskeletal Dis: No Endocrine History of Endocrine Disorders: No HEENT History of HEENT Disorders: No Cancer History of Cancer: No Psychosocial History of Psychiatric Problem: No Suicide Risk Score: 0 Integumentary History of Skin or Integumenta: No Blood Transfusions History of Blood Disorders: No Adverse Reaction to a Blood Tr: No Reviewed Nursing Assessment Reviewed/Agree w Nursing PMH: Yes Family Medical History Significant Family History: Diabetes Family Medial History: Alzheimer's disease Dementia Diabetes mellitus Hypertension Physical Exam Vital Signs Vital Sign - Last 12Hours 08/21/17 08/21/17 16:10 18:37 Temp 99.1 Pulse 95 Resp 18 B/P (MAP) 126/76 Pulse Ox 100 O2 Delivery Room Air Capillary Refill : Greater Than 3 Seconds General Appearance: WD/WN, no apparent distress Cardiovascular: normal peripheral pulses, regular rate, rhythm, no edema, no murmur Respiratory: lungs clear, normal breath sounds, no respiratory distress, no accessory muscle use Gastrointestinal: normal bowel sounds, non tender, soft Back: normal inspection Neurologic/Tendon: normal sensation, normal motor functions, normal tendon functions, responds to pain, no evidence tendon injury Neurologic/Psychiatric: no motor/sensory deficits, alert, normal mood/affect, oriented x 3 Skin: warm/dry, No cyanosis, No cool, No mottled, other (2x2 cm wound of the left dorsal wrist with granulation noted in the wound bed. A small amount of serous drainage noted from the wound and from the blisters on the dosral left 3- 5 fingers. swelling noted to the left wrist/hand/fingers. Erythema from the distal fingers to the proximal forearm with streaking to the level of the left axilla. 3-4 sec cap refill of the left fingers. ) Progress/Results/Core Measures Results/Orders Lab Results Laboratory Tests Test 08/21/17 16:30 Range/Units White Blood Count 30.9 *H 4.3-11.0 10^3/uL Red Blood Count 4.45 4.35-5.85 10^6/uL Hemoglobin 12.9 L 13.3-17.7 G/DL Hematocrit 37 L 40-54 % Mean Corpuscular Volume 84 80-99 FL Mean Corpuscular Hemoglobin 29 25-34 PG Mean Corpuscular Hemoglobin Concent 35 32-36 G/DL Red Cell Distribution Width 11.9 10.0-14.5 % Platelet Count 191 130-400 10^3/uL Mean Platelet Volume 9.0 7.4-10.4 FL Neutrophils (%) (Auto) 91 H 42-75 % Lymphocytes (%) (Auto) 3 L 12-44 % Monocytes (%) (Auto) 5 0-12 % Eosinophils (%) (Auto) 1 0-10 % Basophils (%) (Auto) 0 0-10 % Neutrophils # (Auto) 28.2 H 1.8-7.8 X 10^3 Lymphocytes # (Auto) 0.9 L 1.0-4.0 X 10^3 Monocytes # (Auto) 1.6 H 0.0-1.0 X 10^3 Eosinophils # (Auto) 0.1 0.0-0.3 10^3/uL Basophils # (Auto) 0.0 0.0-0.1 10^3/uL Neutrophils % (Manual) 80 % Lymphocytes % (Manual) 4 % Monocytes % (Manual) 5 % Eosinophils % (Manual) 0 % Basophils % (Manual) 0 % Band Neutrophils 11 % Blood Morphology Comment NORMAL Sodium Level 139 135-145 MMOL/L Potassium Level 4.1 3.6-5.0 MMOL/L Chloride Level 105 98-107 MMOL/L Carbon Dioxide Level 26 21-32 MMOL/L Anion Gap 8 5-14 MMOL/L Blood Urea Nitrogen 9 7-18 MG/DL Creatinine 0.86 0.60-1.30 MG/DL Estimat Glomerular Filtration Rate > 60 BUN/Creatinine Ratio 10 Glucose Level 117 H 70-105 MG/DL Lactic Acid Level 1.06 0.50-2.00 MMOL/L Calcium Level 9.3 8.5-10.1 MG/DL Total Bilirubin 0.5 0.1-1.0 MG/DL Aspartate Amino Transf (AST/SGOT) 22 5-34 U/L Alanine Aminotransferase (ALT/SGPT) 37 0-55 U/L Alkaline Phosphatase 66 40-136 U/L C-Reactive Protein High Sensitivity 35.13 H 0.00-0.50 MG/DL Total Protein 6.9 6.4-8.2 GM/DL Albumin 3.5 3.2-4.5 GM/DL My Orders Orders - [facility] CR Cbc With Automated Diff (08/21/17 16:26) Comprehensive Metabolic Panel (08/21/17 16:26) Hs C Reactive Protein (08/21/17 16:26) Saline Lock/Iv-Start (08/21/17 16:26) Lactic Acid Analyzer (08/21/17 16:33) Blood Culture (08/21/17 16:33) Manual Differential (08/21/17 16:30) Ns Iv 1000 Ml (Sodium Chloride 0.9%) (08/21/17 17:19) Fentanyl Injection (Sublimaze Injection (08/21/17 17:19) Hand, Left, 3 Views (08/21/17 17:33) Clindamycin Injection (Cleocin Injection (08/21/17 17:45) Ketorolac Injection (Toradol Injection) (08/21/17 18:09) Ns Iv 1000 Ml (Sodium Chloride 0.9%) (08/21/17 18:09) Medications Given in ED Current Medications Medications Dose Ordered Sig/Aye Route Start Time Stop Time Status Last Admin Dose Admin Clindamycin Phosphate 900 mg/ Sodium Chloride 56 ml @ 100 mls/hr ONCE ONCE IV 08/21/17 17:45 08/21/17 18:18 DC 08/21/17 17:55 100 MLS/HR Sodium Chloride 1,000 ml @ 0 mls/hr Q0M ONCE IV 08/21/17 17:19 08/21/17 17:20 DC 08/21/17 17:34 1,000 MLS/HR Sodium Chloride 1,000 ml @ 0 mls/hr Q0M ONCE IV 08/21/17 18:09 08/21/17 18:12 DC 08/21/17 18:26 1,000 MLS/HR Vital Signs/I&O Vital Sign - Last 12Hours 08/21/17 08/21/17 08/21/17 08/21/17 16:10 18:28 18:37 19:10 Temp 99.1 99.7 101.3 100.9 Pulse 95 88 108 101 Resp 18 B/P (MAP) 126/76 128/63 93/46 Pulse Ox 100 100 100 93 O2 Delivery Room Air Room Air 08/21/17 08/21/17 08/21/17 19:26 19:31 21:31 Temp 100.2 Pulse 98 O2 Delivery Room Air Blood Pressure Mean: 93 Diagnostic Imaging Diagonstic Imaging: Xray Plain Films/CT/US/NM/MRI: hand Comments FINDINGS: No fracture or malalignment. Skin defect along the dorsal ulnar aspect of the left wrist. There is an unknown 4 mm well-circumscribed round density in the soft tissues deep to the skin defect. IMPRESSION: Unknown 4 mm well-circumscribed radiopaque body in the soft tissues deep to the skin defect along the ulnar aspect of the wrist. Please correlate with physical exam and/or history. Dictated by: Dictated on workstation # [id number] Reviewed: Reviewed by Me (radiology report reviewed by me) Departure Communication (Admissions) Time/Spoke to Admitting Phy: 18:[address] Cobain graciously accepts patient to her internal medicine service for IV antibiotics, pain control, and surgical consult. Time/Spoke to Consulting Phy: 18:30 Communication/Consulting Dr. Garcia notified of surgical consult. Progress Notes all laboratory findings, diagnostic study findings, and plan for admission for IV antibiotics discussed with the patient and family. patient verbalizes understanding and agrees with the treatment plan. plan for admission discussed with dr. huggins, he agrees with the plan of care. Impression Impression: Primary Impression: Sepsis Qualified Codes: A41.9 - Sepsis, unspecified organism Additional Impressions: Cellulitis of left upper extremity s/p lesion excision Disposition: ADMITTED INPATIENT Condition: Stable Admissions Decision to Admit Reason: Admit from ER (General) Decision to Admit/Date: Aug 21, 2017 Time/Decision to Admit Time: 18:25 Departure-Patient Inst. Referrals: JOHNSON CRABTREE MD (PCP/Family) Primary Care Physician [facility] CR Aug 21, 2017 17:47
--- NOTE | 2017-08-21 18:01 | Diagnostic Imaging Report ---
EXAM: Hand, left, 3 views. INDICATION: Swelling around base of the fifth metacarpal. COMPARISON: None. FINDINGS: No fracture or malalignment. Skin defect along the dorsal ulnar aspect of the left wrist. There is an unknown 4 mm well-circumscribed round density in the soft tissues deep to the skin defect. IMPRESSION: Unknown 4 mm well-circumscribed radiopaque body in the soft tissues deep to the skin defect along the ulnar aspect of the wrist. Please correlate with physical exam and/or history. Dictated by: Dictated on workstation # [id number]
[2017-08-21] MEDS ORDERED: KETOROLAC 30 MG/ML VIAL IVP STA (18:09)
--- OUTSIDE RECORDS SUMMARY | 2017-08-21 18:22 | XMS REPORT | Continuity of Care Document ---
Demographics Preferred Language Unknown Marital Status Unknown Denominational Affiliation Unknown Race Unknown Ethnic Group Unknown Author Author [facility] Address Unknown Phone Unavailable Allergies Medications Problems Procedures Results Encounters ACCT No. Visit Date/Time Discharge Status Pt. Type Provider Facility Loc./Unit Complaint [id number] 12/09/2012 14:45:45 RECURRING
[2017-08-21 18:37] VITALS: BP 128/63
[2017-08-21 19:10] VITALS: BP 93/46
[2017-08-21] MEDS: NS IV 1000 ML 1,000 ML IV SCH ×2 (19:28→23:44)
[2017-08-21] MEDS ORDERED: NS (IVPB) 100 ML ONE (20:14)
[2017-08-21] MEDS ORDERED: PIPERACILLIN/TAZO 4.5 GM VIAL (ZOSYN) IV ONE (20:15)
[2017-08-21] MEDS ORDERED: VANCOMYCIN 2000 MG/NS 500 ML IVPB IV SCH ×2 (20:15)
[2017-08-21] MEDS ORDERED: CLINDAMYCIN 600 MG/NS 50 ML IVPB IV SCH ×2 (20:30)
[2017-08-21] MEDS ORDERED: fentaNYL INJECTION 100 MCG/2 ML AMP IV PRN (20:30)
[2017-08-21] MEDS ORDERED: PIPERACILLIN/TAZOBACTAM 4.5 GM/NS100 ML IVPB IV ONE ×4 (20:45→21:15)
[2017-08-21] MEDS: ACETAMINOPHEN 325 MG TABLET/CAPLET (TYLENOL) PO PRN (20:58)
[2017-08-21] MEDS: FAMOTIDINE 20 MG (PEPCID) TABLET PO SCH (21:17)
[2017-08-21] MEDS: LACTOBACILLUS Acidoph/Bulgar (LACTINEX/FLORANEX) TAB PO SCH (21:18)
[2017-08-21] MEDS: VANCOMYCIN 1 GM/NS 250 ML IVPB IV SCH ×4 (21:48→23:02)
[2017-08-22] VITALS (11 sets, daily range): BP systolic 104–157; BP diastolic 52–84
[2017-08-22] MEDS: CLINDAMYCIN 600 MG/NS 50 ML IVPB IV SCH ×6 (01:12→16:48)
[2017-08-22] MEDS: ONDANSETRON 4 MG/2 ML (SDV) Z0FRAN IV PRN (02:13)
[2017-08-22] MEDS: HYDROcodone/APAP 5 MG/325 MG (LORTAB) TAB PO PRN ×3 (02:13→16:52)
[2017-08-22] MEDS ORDERED: PIPERACILLIN/TAZOBACTAM 4.5 GM/NS 100 ML IVPB IV SCH ×2 (02:30)
[2017-08-22] MEDS: KETOROLAC 30 MG/ML VIAL IV PRN ×3 (03:27→21:52)
[2017-08-22] MEDS: NS IV 1000 ML 1,000 ML IV SCH ×4 (04:06→20:52)
[2017-08-22] MEDS: PIPERACILLIN/TAZOBACTAM 4.5 GM/NS100 ML IVPB IV SCH ×6 (04:28→20:50)
[2017-08-22 06:19] LABS: BASOPHILS % (AUTO) 0 % (0-10); EOSINOPHILS # (AUTO) 0.1 10^3/uL (0.0-0.3); EOSINOPHILS % (AUTO) 1 % (0-10); LYMPHOCYTES # (AUTO) 0.9 X 10^3 (1.0-4.0); LYMPHOCYTES % (AUTO) 4 % (12-44); MEAN CORPUSCULAR HEMOGLOBIN 29 PG (25-34); MEAN CORPUSCULAR HGB CONC 34 G/DL (32-36); MEAN CORPUSCULAR VOLUME 86 FL (80-99); MEAN PLATELET VOLUME 9.7 FL (7.4-10.4); MONOCYTES # (AUTO) 0.9 X 10^3 (0.0-1.0); MONOCYTES % (AUTO) 4 % (0-12); NEUTROPHILS # (AUTO) 20.9 X 10^3 (1.8-7.8); NEUTROPHILS % (AUTO) 92 % (42-75); PLATELET COUNT 169 10^3/uL (130-400); RED BLOOD COUNT 3.77 10^6/uL (4.35-5.85); RED CELL DISTRIBUTION WIDTH 11.9 % (10.0-14.5); WHITE BLOOD COUNT 22.9 10^3/uL (4.3-11.0)
[2017-08-22 06:51] LABS: ALANINE AMINOTRANSFERASE 28 U/L (0-55); ALBUMIN 2.8 GM/DL (3.2-4.5); ANION GAP 7 MMOL/L (5-14); ASPARTATE AMINO TRANSFERASE 21 U/L (5-34); BILIRUBIN,TOTAL 0.4 MG/DL (0.1-1.0); BLOOD UREA NITROGEN 9 MG/DL (7-18); BUN/CREATININE RATIO 11; CALCIUM 8.4 MG/DL (8.5-10.1); CARBON DIOXIDE 21 MMOL/L (21-32); CHLORIDE 112 MMOL/L (98-107); GFR ESTIMATED > 60; GLUCOSE 93 MG/DL (70-105); POTASSIUM 3.5 MMOL/L (3.6-5.0); SODIUM 140 MMOL/L (135-145); TOTAL PROTEIN 5.5 GM/DL (6.4-8.2); hs C REACTIVE PROTEIN 30.49 MG/DL (0.00-0.50)
[2017-08-22] MEDS ORDERED: INFLUENZA TRIvalent 2017-2018 0.5 ML/45 MCG SYR IM ONE (07:15)
[2017-08-22] MEDS: ACETAMINOPHEN 325 MG TABLET/CAPLET (TYLENOL) PO PRN (07:54)
--- NOTE | 2017-08-22 08:07 | History & Physical-Hospitalist ---
HPI History of Present Illness: HPI/Chief Complaint Pt is a 22yoCM with recent admission for cellulitis who presented to ER for worsening fever and redness. He had a wart removal on 08/[address] Garcia as an outpatient. He was given a Medrol Dosepak and Augmentin to take at home. Early 08/20 morning he developed a fever, redness of the left hand, and swelling. He was found to meet sepsis criteria due to fever, leukocytosis, and tachycardia. He had significant improvement of the erythema within hours of abx starting and culture grew GAS. Dr Garcia was consulted and recommended outpatient management. Fever resolved and leukocytosis was thought to be due to Medrol Dosepak. He received one more dose of Vancomycin and Rocephin the morning of 08/21 and was discharged home. He returned the to ER the evening of 08/21 for spreading erythema and return of his fever. He was found to have a higher white count despite no further doses of steroids. He was admitted for further IV abx. This morning he reports his swelling is improving further as has the pain. The erythematous streaks have decreased as well per RN report. XR showed 4mm foreign body. He denies any knowledge of previous trauma that could have embedded a foreign body. Source: patient Date Seen 08/22/17 Time Seen by Provider: 07:45 Attending Physician Antonio Cobian MD PCP Hubert Triplett MD Referring Physician Date of Admission Aug 21, 2017 at 6:16 pm Home Medications & Allergies Home Medications Reviewed patient Home Medication Reconciliation Form Allergies Allergies Coded Allergies No Known Drug Allergies ([id number]/23/17) Past Galgzzn-Rbywwg-Wmvvmz Hx Patient Social History Marrital Status: Employed/Student: employed Alcohol Use: Occasionally Uses Number of Drinks Today: GG Alcohol Beverage of Choice: Beer, Whiskey Recreational Drug Use: No Smoking Status: Never a Smoker 2nd Hand Smoke Exposure: No Physical Abuse Screen: No Sexual Abuse: No Recent Foreign Travel: No Contact w/other who traveled: No Recent Hopitalizations: Yes (RELEASED FROM HOSP TODAY) Recent Infectious Disease Expo: No Seasonal Allergies Seasonal Allergies: No Surgeries Yes (WART REMOVED) Appendectomy Respiratory No Cardiovascular No Neurological No Genitourinary No Gastrointestinal No Musculoskeletal No Endocrine History of Endocrine Disorders: No HEENT History of HEENT Disorders: No Cancer No Psychosocial History of Psychiatric Problem: No Integumentary History of Skin or Integumenta: Yes Skin/Integumentary Disorders: Recent Skin Changes Blood Transfusions History of Blood Disorders: No Adverse Reaction to a Blood Tr: No Reviewed Nursing Assessment Reviewed/Agree w Nursing PMH: Yes Family Medical History Significant Family History: Diabetes Family Hx: Alzheimer's disease Dementia Diabetes mellitus Hypertension Review of Systems Constitutional: No chills, fever EENTM: No blurred vision, No double vision, No nose congestion, No throat pain Respiratory: No cough, No dyspnea on exertion, No short of breath Cardiovascular: No chest pain, No edema, No palpitations Gastrointestinal: No abdominal pain, No constipation, No diarrhea, No nausea, No vomiting Genitourinary: No dysuria, No frequency Musculoskeletal: No joint pain, No muscle pain Skin: see HPI Psychiatric/Neurological: Denies Headache, Denies Numbness, Denies Tingling Physical Exam Physical Exam Vital Signs Vital Sign - Last 12Hours 08/21/17 08/21/17 08/22/17 16:10 18:37 03:30 Temp 99.1 Pulse 95 Resp 18 B/P (MAP) 126/76 Pulse Ox 100 O2 Delivery Room Air O2 Flow Rate 2.00 Capillary Refill : Greater Than 3 Seconds General Appearance: No Apparent Distress, WD/WN HEENT: PERRL/EOMI, Moist Mucous Membranes Neck: Non Tender, Supple Respiratory: Lungs Clear, No Respiratory Distress Cardiovascular: Regular Rate, Rhythm, No Murmur Gastrointestinal: Normal Bowel Sounds, Non Tender, Soft Extremity: Normal Capillary Refill, No Calf Tenderness Neurologic/Psychiatric: Alert, Oriented x3, Normal Mood/Affect Skin: Other (left wrist wrapped in gauze (order not to remove until Dr Garcia removes) streaking erythema to axilla ) Results Results/Procedures Lab Laboratory Tests 08/21/17 16:30 08/22/17 05:20 Assessment/Plan Admission Diagnosis cellulitis Diagnosis/Problems Diagnosis/Problems (1) Sepsis Status: Acute Assessment & Plan: No end organ involvement or lactic acidosis- not severe sepsis Symptoms improving Leukocytosis improving as well and afebrile this morning Continue to trend fever Continue IV abx but will deescalate Qualifiers: Qualified Codes: A40.0 - Sepsis due to Streptococcus, group A (2) Cellulitis Status: Acute Assessment & Plan: Dr Garcia consulted Continue IV abx as above Qualifiers: Qualified Codes: L03.114 - Cellulitis of left upper limb (3) Normocytic anemia Status: Acute Assessment & Plan: Likely dilutional Trend (4) Hypokalemia Status: Acute Assessment & Plan: Will replace (5) Prophylactic measure Assessment & Plan: NS at 125ml/hr Reg Diet Lovenox Clinical Quality Measures DVT/VTE Risk/Contraindication: Risk Factor Score Per Nursin RFS Level Per Nursing on Admit: 1=Low/No VTE PPX ANTONIO COBIAN MD Aug 22, 2017 08:07
[2017-08-22] MEDS: FAMOTIDINE 20 MG (PEPCID) TABLET PO SCH ×2 (08:39→20:52)
[2017-08-22] MEDS: LACTOBACILLUS Acidoph/Bulgar (LACTINEX/FLORANEX) TAB PO SCH ×4 (08:39→20:52)
[2017-08-22] MEDS: ENOXAPARIN 40 MG/0.4 ML (LOVENOX) SYR SC SCH (08:44)
[2017-08-22] MEDS ORDERED: cefTRIAXone INJECTION 1,000 MG in NS (IVPB) 50 ML IV SCH (09:00)
[2017-08-22] MEDS: VANCOMYCIN 1 GM/NS 250 ML IVPB IV SCH ×4 (09:24→17:35)
[2017-08-22] MEDS ORDERED: KCL 20 MEQ TAB (K-DUR) PO NR (11:15)
--- NOTE | 2017-08-22 14:49 | Occupational Therapy Eval ---
OT Evaluation-General/PLF Medical Diagnosis Admission Date Aug 21, 2017 at 18:16 Medical Diagnosis: sepsis, cellulitis Onset Date: Aug 21, 2017 Therapy Diagnosis Therapy Diagnosis: decr funct use L UE, with edema Height/Weight Height (Feet): 6 Height (Inches): 2.00 Weight (Pounds): 207 Weight (Ounces): 4.0 Precautions Precautions/Isolations: Standard Precautions Safety Interventions: None Referral Physician: Aranza Referral Reason: Evaluation/Treatment Medical History Current History Recent hospitalization for cellulitis L UE. s/p lesion excision. Admitted with arm pain, L UE. Swelling, blisters, pain, fever Reviewed History: Yes Social History Current Living Status: Spouse ADL-Prior Level of Function ADL PLOF Comments Pt reported that he was independent in managing his basic self care needs. He is a student at [employer] and also works at [employer]. DME/Equipment Comments n/a OT Current Status Subjective Pt seen in room, seated EOB, agreeable to OT. Reported some L UE pain but did not rate or describe it. Appearance Alert, cooperative. L UE edematous, with blisters dorsum of hand. L UE elevated on pillows Mental Status/Objective Patient Orientation: Person, Place, Time, Situation Attachments: IV Current Glasses/Contacts: Yes Hand Dominance: Right Upper Extremity ROM R UE grossly WFL. L UE WFL except forearm and hand limited by edema. Unable to make a fist. Difficulty getting more than about 30 degrees flex at MPs and mid range at IPs. Thumb in abduction Upper Extremity Strength Not tested Edema: Significant edema L hand, forearm and into elbow ADL-Treatment ADL-Current Pt reported he has been able to manage his basic ADLs in the hospital. He took himself to the bathroom, with just help to unhook the IV pole from the wall. He said that he was able to open the bathroom door and turn light on/off with L hand and was encouraged to continue to use it during functional activities. Functional [place] Measure 0=Not Assessed/NA 4=Minimal Assistance 1=Total Assistance 5=Supervision or Setup 2=Maximal Assistance 6=Modified [place] 3=Moderate Assistance 7=Complete IndependenceIRFPAI Quality Coding Scale 6 Independent with activity with or without an assistive device 5 Patient requires set up or clean up by helper. Patient completes activity by themselves 4 Supervision or touching assist (CGA). [place] provide cues , steadying assist 3 The helper provides less than half the effort to complete the activity 2 The helper provides more than half the effort to complete the activity 1 Dependent. The helper does all the effort to complete an activity 7 Patient refused to complete or attempt activity 9 The patient did not perform the activity before the current illness or injury 88 Not attempted due to Medical conditions or safety concerns Other Treatments Pt education on ways to help decrease edema L UE including elevation with full arm at level of heart or above and active movement. Pt educ intrinsic exercises L hand, including MP flexion. Pt provided with pink foam block to use for squeezing and for pinching. Pt with return demo exercises. Pt left with L arm elevated and ice packs on arm. All needs met. Education OT Patient Education: Home exercise program, Purpose of tx/functional activities, Rehab process, Other (edema management) Teaching Recipient: Patient, Family Teaching Methods: Demonstration, Discussion Response to Teaching: Verbalize Understanding, Return Demonstration OT Mcc Goals Document Analyst Goals Time Frame: Aug 29, 2017 Edema decreased in L UE and functional range of motion L UE. Additional Goals: 3-ImproveStrength/Edgar 1=Demonstrate adherence to instructed precautions during ADL tasks. 2=Patient will verbalize/demonstrate understanding of assistive devices/ modifications for ADL. 3=Patient will improve strength/tolerance for activity to enable patient to perform ADL's. OT Education/Plan Problem List/Assessment Assessment: Edema, Restricted Funct UE ROM Pt would benefit from skilled OT to increase functional use L UE and to help decrease edema. Discharge Recommendations Plan/Recommendations: Continue POC Therapy D/C Recommendations: Occupational Therapy Outpatient (if needed) Treatment Plan/Plan of Care Treatment,Training & Education: Yes Patient would benefit from OT for education, treatment and training to promote independence in ADL's, mobility, safety and/or upper extremity function for ADL' s. Plan of Care: UE Funct Exercise/Act, UE Neuromus Re-Ed/Coord, OTHER (edema management) Treatment Duration: Aug 29, 2017 Frequency: 5 times per week Estimated Hrs Per Day: .25 hour per day Agreement: Yes Rehab Potential: Good Time/GCodes Start Time: 14:25 Stop Time: 14:40 Total Time Billed (hr/min): 15 Billed Treatment Time visit, 15 minutes evaluation low intensity KLUSENER,MERYL OT Aug 22, 2017 14:49
[2017-08-22 16:12] LABS: BASOPHILS % (AUTO) 0 % (0-10); EOSINOPHILS # (AUTO) 0.1 10^3/uL (0.0-0.3); EOSINOPHILS % (AUTO) 1 % (0-10); LYMPHOCYTES # (AUTO) 1.1 X 10^3 (1.0-4.0); LYMPHOCYTES % (AUTO) 6 % (12-44); MEAN CORPUSCULAR HEMOGLOBIN 29 PG (25-34); MEAN CORPUSCULAR HGB CONC 34 G/DL (32-36); MEAN CORPUSCULAR VOLUME 86 FL (80-99); MEAN PLATELET VOLUME 9.1 FL (7.4-10.4); MONOCYTES # (AUTO) 0.8 X 10^3 (0.0-1.0); MONOCYTES % (AUTO) 4 % (0-12); NEUTROPHILS # (AUTO) 17.6 X 10^3 (1.8-7.8); NEUTROPHILS % (AUTO) 90 % (42-75); PLATELET COUNT 164 10^3/uL (130-400); RED BLOOD COUNT 4.15 10^6/uL (4.35-5.85); WHITE BLOOD COUNT 19.7 10^3/uL (4.3-11.0)
[2017-08-22] MEDS ORDERED: IOHEXOL 350 MG/ML 150 ML (OMNIPAQUE 350) VIAL IV ONE (19:30)
[2017-08-22] MEDS ORDERED: NS 100 ML (IVPB) BAG IV ONE (19:30)
--- NOTE | 2017-08-22 20:04 | Diagnostic Imaging Report ---
PROCEDURE: CT angiography of the chest with and without contrast. TECHNIQUE: Noncontrast CT of the chest was performed. Subsequently, after intravenous administration of contrast, thin section axial CT angiography of the chest was performed. MIP reconstructions were made. INDICATION: Chest pain. COMPARISON: Chest radiograph dated 08/20/2017 FINDINGS: There is no evidence of acute pulmonary embolus to the segmental division of the pulmonary arteries. Evaluation beyond this is suboptimal secondary to motion artifact. Heart size is within normal limits. There is no large pericardial effusion. There is some prominent soft tissue density within the anterior superior mediastinum, which is likely on the basis of residual thymic tissue. A few enlarged left axillary lymph nodes are identified. Largest measures approximately 1.6 cm in diameter. Despite its enlargement, it shows preservation of normal fatty hilum. No abnormal mediastinal or hilar adenopathy is seen on either side. Evaluation of lung duval demonstrates small left effusion and [id number]-iy-ptmmdaio effusion on the right. There are also scattered and confluent airspace densities within the bilateral lower lobes, left greater than right. There is some minimal patchy involvement of the right middle and bilateral upper lobes as well. Evaluation of lung duval is somewhat mildly obscured secondary to motion artifact. Pulmonary nodules cannot be entirely excluded. There is no pneumothorax on either side. Bony structures show no acute abnormalities. No lytic or blastic bony lesions are seen. Included portions of the upper abdomen are unremarkable. Note is made of generalized soft tissue edema. IMPRESSION: 1. No evidence of acute pulmonary embolus to the segmental division of pulmonary arteries. 2. Scattered and confluent areas of infiltrate/pneumonia greatest within the bilateral lower lobes, left greater than right. Followup with serial chest radiographs is recommended. 3. Bilateral pleural effusions, right greater than left. 4. Probable residual thymic tissue. 5. Mildly prominent left axillary lymph nodes. Etiology and clinical significance is indeterminate. Clinical followup recommended. 6. Generalized soft tissue edema. Dictated by: Dictated on workstation # [id number]
[2017-08-22] MEDS ORDERED: RT-ALBUTEROL SULF 2.5 MG/3 ML PRE-MIX VIAL IH PRN (20:45)
--- NOTE | 2017-08-22 22:05 | Clinic Account Progress/Dx ---
Clinic Account Progress/Dx DIAGNOSIS: Date Seen by Provider: Aug 22, 2017 Time Seen by Provider: 09:45 Acute Respiratory Failure Progress Note: Called by RN earlier in evening about new oxygen requirement developed with persistent fever and tachycardia. EKG was obtained with showed sinus tachycardia. I ordered a CTA at that time. He has continued to worsen from a respiratory standpoint. On my examination he is not using any accessory muscles to breath but is on vapotherm. He is talking in full sentences. He reports feeling poorly and looks worse than on previous exam. GEN: ill appearing, alert, awake, oriented x4 Resp: Decreased breath sounds in bases R>L, no crackles/wheezing, no accessory muscle use Abd: Soft, NTTP Ext: left upper extremity with persistent edema relatively unchanged from AM but with worsening erythema still within lines of demarcation A/P: Acute hypoxemic respiratory failure - CTA shows bilateral pna and pleural effusion (right worse than left) - ABG 7.39/35/64/20 - Start on BiPAP - Goal to keep sats >90 - MAT Protocol - ABG ordered - Urine legionella/strep pna antigens ordered - Sputum culture ordered - Transfer to ICU, consult eICU Sepsis - Bilateral pna and cellulitis as sources - Continue on Vanc/Zosyn/Clindamycin - WBC trending down - Wound culture shows GAS from original admission - NPO per surgery - Will add tamiflu as well - Repeat lactic and BMP Critical Care Time: [id number] ANTONIO BALTAZAR MD Aug 22, 2017 10:05 pm
[2017-08-22 22:08] LABS: ABG BASE EXCESS -3.8 MMOL/L (-2.5-2.5); ABG HCO3 20 MMOL/L (23-27); ABG OXYGEN SATURATION 92 % (94-100); ABG PCO2 35 MMHG (35-45); ABG PH 7.39 (7.37-7.43); ABG PO2 64 MMHG (79-93); ABG TCO2 21.1 MMOL/L (21.0-31.0)
[2017-08-22 22:09] LABS: ALLENS TEST YES-POS; PATIENT TEMP 101.1
[2017-08-22 22:58] LABS: ALANINE AMINOTRANSFERASE 25 U/L (0-55); ALBUMIN 2.9 GM/DL (3.2-4.5); ANION GAP 9 MMOL/L (5-14); ASPARTATE AMINO TRANSFERASE 21 U/L (5-34); BILIRUBIN,TOTAL 0.5 MG/DL (0.1-1.0); BLOOD UREA NITROGEN 7 MG/DL (7-18); BUN/CREATININE RATIO 9; CALCIUM 8.4 MG/DL (8.5-10.1); CARBON DIOXIDE 20 MMOL/L (21-32); CHLORIDE 111 MMOL/L (98-107); CREATININE SERUM 0.81 MG/DL (0.60-1.30); GFR ESTIMATED > 60; GLUCOSE 104 MG/DL (70-105); POTASSIUM 3.4 MMOL/L (3.6-5.0); SODIUM 140 MMOL/L (135-145); TOTAL PROTEIN 6.1 GM/DL (6.4-8.2)
[2017-08-23] VITALS (28 sets, daily range): BP systolic 115–166; BP diastolic 59–107
[2017-08-23] MEDS: VANCOMYCIN 1 GM/NS 250 ML IVPB IV SCH ×4 (01:42→09:35)
[2017-08-23] MEDS: CLINDAMYCIN 600 MG/NS 50 ML IVPB IV SCH ×6 (01:42→17:49)
[2017-08-23] MEDS: PIPERACILLIN/TAZOBACTAM 4.5 GM/NS100 ML IVPB IV SCH ×6 (04:35→21:26)
[2017-08-23] MEDS: NS IV 1000 ML 1,000 ML IV SCH ×2 (04:35→18:43)
[2017-08-23 04:38] LABS: BASOPHILS % (AUTO) 0 % (0-10); EOSINOPHILS # (AUTO) 0.1 10^3/uL (0.0-0.3); EOSINOPHILS % (AUTO) 1 % (0-10); LYMPHOCYTES # (AUTO) 1.5 X 10^3 (1.0-4.0); LYMPHOCYTES % (AUTO) 8 % (12-44); MEAN CORPUSCULAR HEMOGLOBIN 29 PG (25-34); MEAN CORPUSCULAR HGB CONC 33 G/DL (32-36); MEAN CORPUSCULAR VOLUME 85 FL (80-99); MEAN PLATELET VOLUME 9.3 FL (7.4-10.4); MONOCYTES % (AUTO) 6 % (0-12); NEUTROPHILS # (AUTO) 15.5 X 10^3 (1.8-7.8); NEUTROPHILS % (AUTO) 85 % (42-75); PLATELET COUNT 184 10^3/uL (130-400); RED BLOOD COUNT 3.72 10^6/uL (4.35-5.85); WHITE BLOOD COUNT 18.2 10^3/uL (4.3-11.0)
[2017-08-23 05:00] LABS: ANION GAP 9 MMOL/L (5-14); BLOOD UREA NITROGEN 9 MG/DL (7-18); BUN/CREATININE RATIO 12; CALCIUM 8.3 MG/DL (8.5-10.1); CARBON DIOXIDE 22 MMOL/L (21-32); CHLORIDE 111 MMOL/L (98-107); CREATININE SERUM 0.78 MG/DL (0.60-1.30); GFR ESTIMATED > 60; GLUCOSE 89 MG/DL (70-105); MAGNESIUM 1.7 MG/DL (1.8-2.4); PHOSPHORUS 3.5 MG/DL (2.3-4.7); POTASSIUM 3.5 MMOL/L (3.6-5.0); SODIUM 142 MMOL/L (135-145)
[2017-08-23] MEDS: POTASSIUM CL 10MEQ/50ML IVPB 50 ML IV SCH ×3 (06:58→08:15)
[2017-08-23] MEDS: MAGNESIUM 1 GM/100 ML IVPB 100 ML IV SCH ×3 (06:59→08:05)
[2017-08-23] MEDS: KCL 20 MEQ TAB (K-DUR) PO SCH (06:59)
[2017-08-23] MEDS ORDERED: KCL 20 MEQ TAB (K-DUR) PO ONE (07:00)
[2017-08-23] MEDS: RT-ALBUTEROL SULF 2.5 MG/3 ML PRE-MIX VIAL IH SCH ×4 (07:42→18:46)
--- NOTE | 2017-08-23 07:47 | Progress Note-Hospitalist ---
Subjective HPI/CC On Admission Date Seen by Provider: Aug 23, 2017 Time Seen by Provider: 07:25 Pt is a 22yoCM with recent admission for cellulitis who presented to ER for worsening fever and redness. He had a wart removal on 08/[address] Garcia as an outpatient. He was given a Medrol Dosepak and Augmentin to take at home. Early 08/20 morning he developed a fever, redness of the left hand, and swelling. He was found to meet sepsis criteria due to fever, leukocytosis, and tachycardia. He had significant improvement of the erythema within hours of abx starting and culture grew GAS. Dr Garcia was consulted and recommended outpatient management. Fever resolved and leukocytosis was thought to be due to Medrol Dosepak. He received one more dose of Vancomycin and Rocephin the morning of 08/21 and was discharged home. He returned the to ER the evening of 08/21 for spreading erythema and return of his fever. He was found to have a higher white count despite no further doses of steroids. He was admitted for further IV abx. This morning he reports his swelling is improving further as has the pain. The erythematous streaks have decreased as well per RN report. XR showed 4mm foreign body. He denies any knowledge of previous trauma that could have embedded a foreign body. Subjective/Events-last exam Feeling better. Tolerated BiPAP overnight. Would like to trial off of it. Discussed with RN was off earlier today to go to bathroom and maintained adequate sats. Objective Exam Vital Signs Vital Sign - Last 12Hours 08/21/17 08/21/17 08/22/17 08/22/17 16:10 18:37 03:30 20:22 Temp 99.1 Pulse 95 Resp 18 B/P (MAP) 126/76 Pulse Ox 100 O2 Delivery Room Air O2 Flow Rate 2.00 FiO2 100 Capillary Refill : Greater Than 3 Seconds General Appearance: No Apparent Distress, WD/WN Respiratory: No Respiratory Distress, Decreased Breath Sounds (bilateral bases) Cardiovascular: Regular Rate, Rhythm, No Murmur Gastrointestinal: Normal Bowel Sounds, Non Tender, Soft Extremity: Non Tender, No Calf Tenderness Neurologic/Psychiatric: Alert, Oriented x3 Results/Procedures Lab Laboratory Tests 08/22/17 16:06 08/22/17 22:30 08/23/17 03:57 Assessment/Plan Assessment and Plan Assess & Plan/Chief Complaint Sepsis Diagnosis/Problems Diagnosis/Problems (1) Acute hypoxemic respiratory failure Status: Acute Assessment & Plan: 2/2 pna/sepsis BG with significant hypoxia given that he was on 100% FiO2 Responded well to BiPAP, sats have stayed 99-100 overnight Will attempt to transition off Will likely need at night Consult Pulm Continue MAT protocol (2) Sepsis Status: Acute Assessment & Plan: Leukocytosis improving Remains febrile Continue to trend fever Continue IV abx (Clindamycin, Vanc, Zosyn) Add Tamiflu Qualifiers: Qualified Codes: A40.0 - Sepsis due to Streptococcus, group A (3) Cellulitis Status: Acute Assessment & Plan: Dr Garcia consulted Continue IV abx as above Qualifiers: Qualified Codes: L03.114 - Cellulitis of left upper limb (4) Normocytic anemia Status: Acute Assessment & Plan: Likely dilutional Trend (5) Hypokalemia Status: Acute Assessment & Plan: Will replace (6) Prophylactic measure Assessment & Plan: NS at 125ml/hr Reg Diet ANTONIO Carrion MD Aug 23, 2017 07:46
[2017-08-23] MEDS: ENOXAPARIN 40 MG/0.4 ML (LOVENOX) SYR SC SCH (08:12)
[2017-08-23] MEDS: OSELTAMIVIR 75 MG (TAMIFLU) BOX OF 10 PO SCH ×2 (08:15→21:26)
[2017-08-23] MEDS: LACTOBACILLUS Acidoph/Bulgar (LACTINEX/FLORANEX) TAB PO SCH ×4 (08:15→21:26)
[2017-08-23] MEDS: FAMOTIDINE 20 MG (PEPCID) TABLET PO SCH ×2 (08:16→21:26)
[2017-08-23] MEDS ORDERED: TROUGH ORDER-PHARMACY XX NR (09:00)
[2017-08-23] MEDS: VANCOMYCIN 1250 MG/NS 250 ML IVPB IV SCH ×4 (10:07→17:49)
[2017-08-23] MEDS: ONDANSETRON 4 MG/2 ML (SDV) Z0FRAN IV PRN (10:21)
[2017-08-23] MEDS ORDERED: LORazepam INJ 2 MG/ML (ATIVAN) VIAL IVP PRN (12:15)
--- NOTE | 2017-08-23 12:15 | Progress Note (SOAP) ---
Subjective Date Seen by Provider: Aug 23, 2017 Time Seen by Provider: 12:00 Subjective/Events-last exam doing better. SOB much better. states that he is very anxious. moves all fingers , no parasthesia. Objective Exam Vital Signs Date Time Temp Pulse Resp B/P (MAP) Pulse Ox O2 Delivery O2 Flow Rate FiO2 08/23/17 11:02 99 Nasal Cannula 2.00 08/23/17 10:23 99.5 08/23/17 10:00 98 21 146/92 95 Nasal Cannula 4.00 08/23/17 09:00 98 22 141/94 95 Nasal Cannula 2.00 08/23/17 08:15 98.9 101 23 143/88 93 Nasal Cannula 2.00 08/23/17 08:00 Nasal Cannula 2.00 08/23/17 07:43 100 Vapotherm 15.00 50 08/23/17 07:00 76 21 139/85 100 NIV Bilevel 50.00 08/23/17 07:00 76 08/23/17 06:00 74 19 136/78 100 NIV Bilevel 50.00 08/23/17 05:00 75 19 139/87 100 NIV Bilevel 50.00 08/23/17 04:16 79 35 100 60.00 08/23/17 04:00 75 19 127/79 100 NIV Bilevel 50.00 08/23/17 03:00 70 17 129/80 100 NIV Bilevel 60.00 08/23/17 02:00 76 16 132/75 99 NIV Bilevel 80.00 08/23/17 01:00 79 08/23/17 01:00 70 17 136/72 100 NIV Bilevel 100.00 08/23/17 00:00 82 18 115/59 99 NIV Bilevel 100.00 08/22/17 23:53 80 17 100 100.00 08/22/17 23:00 86 21 147/81 98 NIV Bilevel 100.00 08/22/17 22:59 99.3 08/22/17 22:45 100.5 89 19 157/84 99 NIV Bilevel 100.00 08/22/17 22:25 96 08/22/17 22:25 96 27 95 100.00 08/22/17 21:52 101.0 08/22/17 21:11 94 Vapotherm 15.00 100 08/22/17 21:00 93 Vapotherm 15.00 100 08/22/17 20:55 100.3 08/22/17 20:22 108 95 100 08/22/17 20:06 95 Vapotherm 100.00 15.00 08/22/17 19:54 101.4 108 15 145/74 90 Vapotherm 63.00 5.00 08/22/17 17:36 100.7 08/22/17 16:52 100.5 08/22/17 16:50 100.5 08/22/17 15:20 98.5 89 18 135/74 98 08/22/17 13:49 99.9 08/22/17 13:30 99.9 08/22/17 12:25 101.1 97 20 124/73 90 Room Air 08/22/17 12:20 101.0 I & O 08/24/17 07:00 Intake Total 0 ml Balance 0 ml Capillary Refill : Greater Than 3 Seconds General Appearance: No Apparent Distress HEENT: PERRL/EOMI Neck: Full Range of Motion Respiratory: Chest Non Tender, Decreased Breath Sounds Cardiovascular: Regular Rate, Rhythm Gastrointestinal: normal bowel sounds, non tender, soft Extremity: Normal Capillary Refill, Inflammation, Swelling (left hand and forearm edema, no fluctuance. ) Neurologic/Psychiatric: Alert, Oriented x3 Skin: Normal Color Lymphatic: No Adenopathy Results Lab Laboratory Tests 08/22/17 16:06: White Blood Count 19.7H, Red Blood Count 4.15L, Hemoglobin 12.0L, Hematocrit 36L , Mean Corpuscular Volume 86, Mean Corpuscular Hemoglobin 29, Mean Corpuscular Hemoglobin Concent 34, Red Cell Distribution Width 12.0, Platelet Count 164, Mean Platelet Volume 9.1, Neutrophils (%) (Auto) 90H, Lymphocytes (%) (Auto) 6L , Monocytes (%) (Auto) 4, Eosinophils (%) (Auto) 1, Basophils (%) (Auto) 0, Neutrophils # (Auto) 17.6H, Lymphocytes # (Auto) 1.1, Monocytes # (Auto) 0.8, Eosinophils # (Auto) 0.1, Basophils # (Auto) 0.0 08/22/17 21:59: Blood Gas Puncture Site RT RAD, Blood Gas Patient Temperature 101.1, Arterial Blood pH 7.39, Arterial Blood Partial Pressure CO2 35, Arterial Blood Partial Pressure O2 64L, Arterial Blood HCO3 20L, Arterial Blood Total CO2 21.1, Arterial Blood Oxygen Saturation 92L, Arterial Blood Base Excess -3.8L, Jamel Test YES-POS, Blood Gas Ventilator Setting NO, Blood Gas Inspired Oxygen 90% 08/22/17 22:30: Sodium Level 140, Potassium Level 3.4L, Chloride Level 111H, Carbon Dioxide Level 20L, Anion Gap 9, Blood Urea Nitrogen 7, Creatinine 0.81, Estimat Glomerular Filtration Rate > 60, BUN/Creatinine Ratio 9, Glucose Level 104, Lactic Acid Level 0.68, Calcium Level 8.4L, Total Bilirubin 0.5, Aspartate Amino Transf (AST/SGOT) 21, Alanine Aminotransferase (ALT/SGPT) 25, Alkaline Phosphatase 70, Total Protein 6.1L, Albumin 2.9L 08/23/17 03:57: White Blood Count 18.2H, Red Blood Count 3.72L, Hemoglobin 10.6L, Hematocrit 32L , Mean Corpuscular Volume 85, Mean Corpuscular Hemoglobin 29, Mean Corpuscular Hemoglobin Concent 33, Red Cell Distribution Width 12.0, Platelet Count 184, Mean Platelet Volume 9.3, Neutrophils (%) (Auto) 85H, Lymphocytes (%) (Auto) 8L , Monocytes (%) (Auto) 6, Eosinophils (%) (Auto) 1, Basophils (%) (Auto) 0, Neutrophils # (Auto) 15.5H, Lymphocytes # (Auto) 1.5, Monocytes # (Auto) 1.0, Eosinophils # (Auto) 0.1, Basophils # (Auto) 0.0, Sodium Level 142, Potassium Level 3.5L, Chloride Level 111H, Carbon Dioxide Level 22, Anion Gap 9, Blood Urea Nitrogen 9, Creatinine 0.78, Estimat Glomerular Filtration Rate > 60, BUN/ Creatinine Ratio 12, Glucose Level 89, Calcium Level 8.3L, Phosphorus Level 3.5 , Magnesium Level 1.7L 08/23/17 09:24: Vancomycin Level Trough 8.1L Microbiology 08/21/17 Blood Culture - Preliminary, Resulted No growth 08/22/17 Influenza Types A,B Antigen (TERRY) - Final, Complete Assessment/Plan Assessment/Plan Assess & Plan/Chief Complaint cellulitis and sepsis left upper extremity. check u/s. continue elvevation, ice and abx. Clinical Quality Measures DVT/VTE Risk/Contraindication: Risk Factor Score Per Nursin RFS Level Per Nursing on Admit: 1=Low/No VTE PPX WILIAM CHACKO MD Aug 23, 2017 12:15
--- NOTE | 2017-08-23 13:41 | Diagnostic Imaging Report ---
INDICATION: Shortness of breath. COMPARISON: 08/20/2017. FINDINGS: Upright portable view of the chest obtained. Heart size is normal. The pulmonary vessels appear unremarkable. There is no pneumothorax or mediastinal widening. There are increasing opacities in the lung bases bilaterally, likely a combination of some atelectasis or infiltrate with small bilateral pleural effusions. IMPRESSION: Interval development of bibasilar airspace disease and pleural fluid. Dictated by: Dictated on workstation # [id number]
--- NOTE | 2017-08-23 15:33 | Diagnostic Imaging Report ---
PROCEDURE: US venous upper extremity left. TECHNIQUE: Multiple realtime grayscale images were obtained of left upper extremity in various projections. Duplex Doppler and and color Doppler images were also obtained. INDICATION: Left arm swelling. Cellulitis. FINDINGS: Examination shows normal augmentation, compression and color Doppler flow in the veins of the left upper extremity with no deep venous thrombosis or other abnormality seen. No soft tissue mass is seen. IMPRESSION: No abnormality is seen. Dictated by: Dictated on workstation # [id number]
[2017-08-23] MEDS: HYDROcodone/APAP 5 MG/325 MG (LORTAB) TAB PO PRN (15:37)
[2017-08-24] VITALS (28 sets, daily range): BP systolic 128–164; BP diastolic 70–107
[2017-08-24] MEDS: CLINDAMYCIN 600 MG/NS 50 ML IVPB IV SCH ×6 (00:50→16:08)
[2017-08-24] MEDS: VANCOMYCIN 1250 MG/NS 250 ML IVPB IV SCH ×6 (03:18→17:53)
[2017-08-24 04:30] LABS: BASOPHILS % (AUTO) 0 % (0-10); EOSINOPHILS # (AUTO) 0.2 10^3/uL (0.0-0.3); EOSINOPHILS % (AUTO) 2 % (0-10); LYMPHOCYTES # (AUTO) 1.5 X 10^3 (1.0-4.0); LYMPHOCYTES % (AUTO) 13 % (12-44); MEAN CORPUSCULAR HEMOGLOBIN 29 PG (25-34); MEAN CORPUSCULAR HGB CONC 34 G/DL (32-36); MEAN CORPUSCULAR VOLUME 84 FL (80-99); MONOCYTES # (AUTO) 0.8 X 10^3 (0.0-1.0); MONOCYTES % (AUTO) 7 % (0-12); NEUTROPHILS # (AUTO) 8.9 X 10^3 (1.8-7.8); NEUTROPHILS % (AUTO) 78 % (42-75); PLATELET COUNT 205 10^3/uL (130-400); RED BLOOD COUNT 3.51 10^6/uL (4.35-5.85); RED CELL DISTRIBUTION WIDTH 11.8 % (10.0-14.5); WHITE BLOOD COUNT 11.4 10^3/uL (4.3-11.0)
[2017-08-24 04:51] LABS: ANION GAP 7 MMOL/L (5-14); BLOOD UREA NITROGEN 8 MG/DL (7-18); BUN/CREATININE RATIO 11; CALCIUM 8.2 MG/DL (8.5-10.1); CARBON DIOXIDE 24 MMOL/L (21-32); CHLORIDE 111 MMOL/L (98-107); CREATININE SERUM 0.75 MG/DL (0.60-1.30); GFR ESTIMATED > 60; GLUCOSE 97 MG/DL (70-105); PHOSPHORUS 3.7 MG/DL (2.3-4.7); POTASSIUM 3.3 MMOL/L (3.6-5.0); SODIUM 142 MMOL/L (135-145)
[2017-08-24] MEDS: PIPERACILLIN/TAZOBACTAM 4.5 GM/NS100 ML IVPB IV SCH ×6 (05:25→21:31)
[2017-08-24] MEDS: NS IV 1000 ML 1,000 ML IV SCH ×2 (05:26→06:02)
[2017-08-24] MEDS: POTASSIUM CL 10MEQ/50ML IVPB 50 ML IV SCH ×5 (05:28→06:02)
[2017-08-24] MEDS: MAGNESIUM 1 GM/100 ML IVPB 100 ML IV SCH (05:28)
[2017-08-24] MEDS: KCL 20 MEQ TAB (K-DUR) PO SCH (05:28)
[2017-08-24] MEDS: RT-ALBUTEROL SULF 2.5 MG/3 ML PRE-MIX VIAL IH SCH ×4 (06:26→19:10)
[2017-08-24 06:27] LABS: ABG HCO3 23 MMOL/L (23-27); ABG OXYGEN SATURATION 93 % (94-100); ABG PCO2 37 MMHG (35-45); ABG PH 7.41 (7.37-7.43); ABG PO2 62 MMHG (79-93); ABG TCO2 23.9 MMOL/L (21.0-31.0)
[2017-08-24 06:32] LABS: ALLENS TEST YES-POS; PATIENT TEMP 99.8
[2017-08-24] MEDS ORDERED: FUROSEMIDE 40 MG/4 ML INJ (LASIX) IVP NR (08:30)
--- NOTE | 2017-08-24 08:42 | Progress Note-Hospitalist ---
Subjective HPI/CC On Admission Date Seen by Provider: Aug 24, 2017 Time Seen by Provider: 08:20 Pt is a 22yoCM with recent admission for cellulitis who presented to ER for worsening fever and redness. He had a wart removal on 08/[address] Garcia as an outpatient. He was given a Medrol Dosepak and Augmentin to take at home. Early 08/20 morning he developed a fever, redness of the left hand, and swelling. He was found to meet sepsis criteria due to fever, leukocytosis, and tachycardia. He had significant improvement of the erythema within hours of abx starting and culture grew GAS. Dr Garcia was consulted and recommended outpatient management. Fever resolved and leukocytosis was thought to be due to Medrol Dosepak. He received one more dose of Vancomycin and Rocephin the morning of 08/21 and was discharged home. He returned the to ER the evening of 08/21 for spreading erythema and return of his fever. He was found to have a higher white count despite no further doses of steroids. He was admitted for further IV abx. This morning he reports his swelling is improving further as has the pain. The erythematous streaks have decreased as well per RN report. XR showed 4mm foreign body. He denies any knowledge of previous trauma that could have embedded a foreign body. Subjective/Events-last exam Reports feeling better. Per RN report had rough night keeps sats up. Did well with BiPAP but when taken off to transfer to toilet sats dropped. Doing well on Vapotherm currently. Objective Exam Vital Signs Vital Sign - Last 12Hours 08/21/17 08/21/17 08/22/17 08/22/17 16:10 18:37 03:30 20:22 Temp 99.1 Pulse 95 Resp 18 B/P (MAP) 126/76 Pulse Ox 100 O2 Delivery Room Air O2 Flow Rate 2.00 FiO2 100 Capillary Refill : Greater Than 3 Seconds General Appearance: No Apparent Distress, WD/WN Respiratory: No No Respiratory Distress, No Crackles, Decreased Breath Sounds ( in bases), No Wheezing, Other (on vapotherm) Cardiovascular: Regular Rate, Rhythm, No Murmur Gastrointestinal: Normal Bowel Sounds, Non Tender, Soft Extremity: Non Tender, No Calf Tenderness Neurologic/Psychiatric: Alert, Oriented x3 Results/Procedures Lab Laboratory Tests 08/24/17 04:11 Assessment/Plan Assessment and Plan Assess & Plan/Chief Complaint Sepsis Diagnosis/Problems Diagnosis/Problems (1) Acute hypoxemic respiratory failure Status: Acute Assessment & Plan: 2/2 pna/sepsis BG with significant hypoxia still despite high FiO2s Responded well to BiPA BiPAP prn and at night Consult Pulm Continue MAT protocol Trial Lasix today at over 6L positive since admission (2) Sepsis Status: Acute Assessment & Plan: Leukocytosis improving Fever curve trending tdown Continue IV abx (Clindamycin, Vanc, Zosyn) Continue Tamiflu Qualifiers: Qualified Codes: A40.0 - Sepsis due to Streptococcus, group A (3) Cellulitis Status: Acute Assessment & Plan: Dr Garcia consulted Continue IV abx as above Qualifiers: Qualified Codes: L03.114 - Cellulitis of left upper limb (4) Normocytic anemia Status: Acute Assessment & Plan: Likely dilutional Trend, has been stable (5) Hypokalemia Status: Acute Assessment & Plan: Will replace (6) Prophylactic measure Assessment & Plan: Saline Lock Reg Diet ANTONIO Carrion MD Aug 24, 2017 8:42 am
[2017-08-24] MEDS: LACTOBACILLUS Acidoph/Bulgar (LACTINEX/FLORANEX) TAB PO SCH ×4 (08:43→20:27)
[2017-08-24] MEDS: FAMOTIDINE 20 MG (PEPCID) TABLET PO SCH ×2 (08:43→20:27)
[2017-08-24] MEDS: OSELTAMIVIR 75 MG (TAMIFLU) BOX OF 10 PO SCH ×2 (08:43→21:31)
[2017-08-24] MEDS: ENOXAPARIN 40 MG/0.4 ML (LOVENOX) SYR SC SCH (08:43)
--- NOTE | 2017-08-24 08:45 | Diagnostic Imaging Report ---
INDICATION: Pneumonia. FINDINGS: Portable chest shows normal heart size and vascularity. There has been improved aeration of both lung bases since 08/23/2017. There remain some atelectasis as well as possibly some infiltrate at the left lung base. There may be a small effusion on the left. IMPRESSION: There has been some improved aeration of the lung bases. Recommend continued followup. Dictated by: Dictated on workstation # [id number]
[2017-08-24] MEDS ORDERED: TROUGH ORDER-PHARMACY XX NR (09:00)
--- NOTE | 2017-08-24 14:02 | Progress Note (SOAP) ---
Subjective Date Seen by Provider: Aug 24, 2017 Time Seen by Provider: 13:30 Subjective/Events-last exam doing better. less edema left arm. WBC normalizing. hypoxemia most likely secondary pulmonary edema from sepsis. improved with lasix. Objective Exam Vital Signs Date Time Temp Pulse Resp B/P (MAP) Pulse Ox O2 Delivery O2 Flow Rate FiO2 08/24/17 12:43 81 34 143/97 92 Vapotherm 50.00 14.00 08/24/17 12:00 Vapotherm 50.00 14.00 08/24/17 11:53 90 Vapotherm 50.00 12.00 08/24/17 11:47 91 Vapotherm 10.00 50 08/24/17 11:15 Vapotherm 14.00 50 08/24/17 11:12 99.5 88 15 136/88 96 Vapotherm 50.00 10.00 08/24/17 10:00 94 35 154/86 95 Vapotherm 50.00 10.00 08/24/17 09:00 93 25 90 Vapotherm 50.00 10.00 08/24/17 08:52 149/89 08/24/17 08:30 Vapotherm 10.00 50 08/24/17 08:00 100.0 97 90 Vapotherm 50.00 10.00 08/24/17 08:00 88 30 159/107 91 Vapotherm 50.00 10.00 08/24/17 07:53 Vapotherm 50.00 10.00 08/24/17 07:51 91 Vapotherm 10.00 50 08/24/17 07:00 90 25 153/86 94 Nasal Cannula 6.00 08/24/17 07:00 90 08/24/17 06:26 84 29 93 35.00 08/24/17 06:00 89 32 164/102 92 NIV Bilevel 35.00 08/24/17 05:00 80 24 140/88 96 NIV Bilevel 35.00 08/24/17 04:20 86 24 98 35.00 08/24/17 04:00 99.2 08/24/17 04:00 NIV Bilevel 35 08/24/17 04:00 77 25 147/93 96 NIV Bilevel 35.00 08/24/17 03:00 81 15 147/103 94 NIV Bilevel 35.00 08/24/17 02:18 84 25 94 35.00 08/24/17 02:00 77 28 143/101 96 NIV Bilevel 35.00 08/24/17 01:00 88 08/24/17 01:00 90 34 146/92 96 NIV Bilevel 35.00 08/24/17 00:01 76 24 98 35.00 08/24/17 00:00 NIV Bilevel 35 08/24/17 00:00 79 24 138/98 98 NIV Bilevel 35.00 08/23/17 23:00 87 24 129/74 96 NIV Bilevel 35.00 08/23/17 22:09 87 25 96 35.00 08/23/17 22:00 101 21 147/90 92 NIV Bilevel 35.00 08/23/17 21:00 90 22 155/100 90 Nasal Cannula 3.00 08/23/17 20:00 99.6 98 30 161/107 91 Nasal Cannula 3.00 08/23/17 20:00 Nasal Cannula 3.00 08/23/17 19:00 100 08/23/17 19:00 101 32 155/104 92 Nasal Cannula 3.00 08/23/17 18:47 93 Nasal Cannula 4.00 08/23/17 18:45 99.1 99 14 142/93 93 Nasal Cannula 08/23/17 18:00 105 32 158/100 92 Nasal Cannula 3.00 08/23/17 17:00 101 29 156/90 91 Nasal Cannula 3.00 08/23/17 16:00 110 16 164/95 95 Nasal Cannula 3.00 08/23/17 15:38 100.6 08/23/17 15:30 Nasal Cannula 3.00 08/23/17 15:01 94 Nasal Cannula 2.00 08/23/17 15:00 94 29 156/106 93 Nasal Cannula 3.00 08/23/17 14:20 100.3 101 24 166/97 90 Nasal Cannula 3.00 08/23/17 14:00 105 20 160/103 90 Nasal Cannula 2.00 I & O 08/25/17 07:00 Intake Total 1366.5 ml Output Total 1550 ml Balance -183.5 ml Capillary Refill : Greater Than 3 Seconds General Appearance: No Apparent Distress HEENT: PERRL/EOMI Neck: Full Range of Motion Respiratory: Chest Non Tender, Rhonci Cardiovascular: Regular Rate, Rhythm Gastrointestinal: normal bowel sounds, non tender, soft Extremity: Normal Capillary Refill, Inflammation (much less edema with soft compartments. superficial erythema about same.), Swelling Neurologic/Psychiatric: Alert, Oriented x3 Skin: Normal Color Lymphatic: No Adenopathy Results Lab Laboratory Tests 08/24/17 04:11: White Blood Count 11.4H, Red Blood Count 3.51L, Hemoglobin 10.1L, Hematocrit 30L , Mean Corpuscular Volume 84, Mean Corpuscular Hemoglobin 29, Mean Corpuscular Hemoglobin Concent 34, Red Cell Distribution Width 11.8, Platelet Count 205, Mean Platelet Volume 9.0, Neutrophils (%) (Auto) 78H, Lymphocytes (%) (Auto) 13 , Monocytes (%) (Auto) 7, Eosinophils (%) (Auto) 2, Basophils (%) (Auto) 0, Neutrophils # (Auto) 8.9H, Lymphocytes # (Auto) 1.5, Monocytes # (Auto) 0.8, Eosinophils # (Auto) 0.2, Basophils # (Auto) 0.0, Sodium Level 142, Potassium Level 3.3L, Chloride Level 111H, Carbon Dioxide Level 24, Anion Gap 7, Blood Urea Nitrogen 8, Creatinine 0.75, Estimat Glomerular Filtration Rate > 60, BUN/ Creatinine Ratio 11, Glucose Level 97, Calcium Level 8.2L, Phosphorus Level 3.7 , Magnesium Level 2.0 08/24/17 06:20: Blood Gas Puncture Site RT RAD, Blood Gas Patient Temperature 99.8, Arterial Blood pH 7.41, Arterial Blood Partial Pressure CO2 37, Arterial Blood Partial Pressure O2 62L, Arterial Blood HCO3 23, Arterial Blood Total CO2 23.9, Arterial Blood Oxygen Saturation 93L, Arterial Blood Base Excess -1.0, Jamel Test YES-POS, Blood Gas Ventilator Setting NO, Blood Gas Inspired Oxygen 35% BIPAP 08/24/17 10:08: Vancomycin Level Trough 14.6 Microbiology 08/21/17 Blood Culture - Preliminary, Resulted No growth 08/22/17 Influenza Types A,B Antigen (TERRY) - Final, Complete 08/22/17 Gram Stain - Final, Resulted 08/22/17 Wound Culture - Preliminary, Resulted Streptococcus Pyogenes Grp A Assessment/Plan Assessment/Plan Assess & Plan/Chief Complaint GAS severe cellulitis and sepsis left upper extremity. pulmonary edema. on lasix continue elvevation, ice and abx. PICC in am for potential intermission coordinator IV abx. Clinical Quality Measures DVT/VTE Risk/Contraindication: Risk Factor Score Per Nursin RFS Level Per Nursing on Admit: 1=Low/No VTE PPX WILIAM CHACKO MD Aug 24, 2017 14:02
[2017-08-24] MEDS ORDERED: KCL 20 MEQ TAB (K-DUR) PO NR (16:15)
[2017-08-24] MEDS: KETOROLAC 30 MG/ML VIAL IV PRN (19:57)
[2017-08-25] VITALS (22 sets, daily range): BP systolic 123–194; BP diastolic 80–113
[2017-08-25] MEDS: CLINDAMYCIN 600 MG/NS 50 ML IVPB IV SCH ×6 (01:04→17:31)
[2017-08-25] MEDS: VANCOMYCIN 1250 MG/NS 250 ML IVPB IV SCH ×6 (02:00→18:14)
[2017-08-25 05:07] LABS: BASOPHILS % (AUTO) 0 % (0-10); EOSINOPHILS # (AUTO) 0.2 10^3/uL (0.0-0.3); EOSINOPHILS % (AUTO) 3 % (0-10); LYMPHOCYTES # (AUTO) 1.4 X 10^3 (1.0-4.0); LYMPHOCYTES % (AUTO) 15 % (12-44); MEAN CORPUSCULAR HEMOGLOBIN 29 PG (25-34); MEAN CORPUSCULAR HGB CONC 35 G/DL (32-36); MEAN CORPUSCULAR VOLUME 84 FL (80-99); MEAN PLATELET VOLUME 9.1 FL (7.4-10.4); MONOCYTES % (AUTO) 11 % (0-12); NEUTROPHILS # (AUTO) 6.5 X 10^3 (1.8-7.8); NEUTROPHILS % (AUTO) 72 % (42-75); PLATELET COUNT 209 10^3/uL (130-400); RED BLOOD COUNT 3.77 10^6/uL (4.35-5.85); RED CELL DISTRIBUTION WIDTH 11.7 % (10.0-14.5); WHITE BLOOD COUNT 9.1 10^3/uL (4.3-11.0)
[2017-08-25 05:24] LABS: ANION GAP 8 MMOL/L (5-14); BLOOD UREA NITROGEN 11 MG/DL (7-18); BUN/CREATININE RATIO 11; CALCIUM 8.4 MG/DL (8.5-10.1); CARBON DIOXIDE 24 MMOL/L (21-32); CHLORIDE 110 MMOL/L (98-107); GFR ESTIMATED > 60; GLUCOSE 97 MG/DL (70-105); MAGNESIUM 1.9 MG/DL (1.8-2.4); PHOSPHORUS 4.5 MG/DL (2.3-4.7); POTASSIUM 3.5 MMOL/L (3.6-5.0); SODIUM 142 MMOL/L (135-145)
[2017-08-25] MEDS: PIPERACILLIN/TAZOBACTAM 4.5 GM/NS100 ML IVPB IV SCH ×6 (05:51→21:24)
[2017-08-25] MEDS: MAGNESIUM 1 GM/100 ML IVPB 100 ML IV SCH (06:14)
[2017-08-25] MEDS: POTASSIUM CL 10MEQ/50ML IVPB 50 ML IV SCH (06:14)
[2017-08-25] MEDS: KCL 20 MEQ TAB (K-DUR) PO SCH (06:14)
[2017-08-25] MEDS ORDERED: KCL 20 MEQ TAB (K-DUR) PO ONE (06:15)
[2017-08-25] MEDS: RT-ALBUTEROL SULF 2.5 MG/3 ML PRE-MIX VIAL IH SCH ×4 (07:47→18:35)
--- NOTE | 2017-08-25 08:12 | Pulmonary Consultation ---
History of Present Illness History of Present Illness Date of Consultation 08/25/17 08:07 Time Seen by Provider: 08:07 Date of Admission History of Present Illness 22yo with hx of recent admission for cellulits presented to ED secondary to worsening fever and erythema. Pt had recent wart removal on 08/[address] Garcia as outpatient and then developed fever, erythema of left hand. Pt was dx with sepsis in the ED. Pt is currently on Vanco, clindamycin, and vancomycin. Pt was transferred to ICU over the weekend secondary to worsening respiratory distress and requiring BiPAP support. CT of chest showed pneumonia and pulmonary edema/ pleural effusion. I am consulted for ICU management. No prior episodes like this in the past. Allergies and Home Medications Allergies Coded Allergies: No Known Drug Allergies (Unverified , 08/21/17) Home Medications Cephalexin 500 Mg Capsule, 500 MG PO BID, #10 Prescribed by: ANTONIO BALTAZAR on 08/21/17 0702 Hydrocodone/Acetaminophen 1 Each Tablet, 1 TAB PO Q4H PRN for PAIN-MODERATE, ( Reported) Methylprednisolone 4 Mg Tab.ds.pk, PO UD for 6 Days, (Reported) 6 DAY SUPPLY FILLED 08-20-17 TAKE DIRECTED Past Aznosxi-Oqibgx-Wxjsmv Hx Patient Social History Alcohol Use: Occasionally Uses Number of Drinks Today: GG Alcohol Beverage of Choice: Beer, Whiskey Recreational Drug Use: No Smoking Status: Never a Smoker 2nd Hand Smoke Exposure: No Recent Foreign Travel: No Contact w/Someone Who Travel: No Recent Infectious Disease Expo: No Recent Hopitalizations: Yes (RELEASED FROM HOSP TODAY) Physical Abuse: No Sexual Abuse: No Seasonal Allergies Seasonal Allergies: No Surgeries History of Surgeries: Yes (WART REMOVED) Surgeries: Appendectomy Respiratory History of Respiratory Disorde: No Cardiovascular History of Cardiac Disorders: No Neurological History of Neurological Disord: No Genitourinary History of Genitourinary Disor: No Gastrointestinal History of Gastrointestinal Di: No Musculoskeletal History of Musculoskeletal Dis: No Endocrine History of Endocrine Disorders: No HEENT History of HEENT Disorders: No Cancer History of Cancer: No Psychosocial History of Psychiatric Problem: No Suicide Risk Score: 0 Integumentary History of Skin or Integumenta: Yes Skin/Integumentary Disorders: Recent Skin Changes Blood Transfusions History of Blood Disorders: No Adverse Reaction to a Blood Tr: No Reviewed Nursing Assessment Reviewed/Agree w Nursing PMH: Yes Family Medical History Significant Family History: Diabetes Family Medial History: Alzheimer's disease Dementia Diabetes mellitus Hypertension Review of Systems Time Seen by Provider: 09:13 Constitutional: Fever, Chills, Sweats, Weakness, Malaise Eyes: No: Pain, Vision change, Conjunctivae inflammation, Eyelid inflammation, Other, Redness ENT: No: Ear pain, Ear discharge, Nose pain, Nose discharge, Nose congestion, Mouth pain, Mouth swelling, Throat pain, Throat swelling, Other Respiratory: Cough, Dry, Shortness of breath, SOB with excertion Cardiovascular: Palpitations Gastrointestinal: No: Nausea, Vomiting, Abdominal Pain Genitourinary: No Dysuria, No Frequency Skin: Rash, Lesions Exam Exam Vital Signs Date Time Temp Pulse Resp B/P (MAP) Pulse Ox O2 Delivery O2 Flow Rate FiO2 08/25/17 07:55 Nasal Cannula 3.00 08/25/17 07:00 67 08/25/17 06:00 63 22 146/99 96 NIV Bilevel 35.00 08/25/17 05:00 89 14 146/99 98 NIV Bilevel 35.00 08/25/17 04:19 67 22 97 35.00 08/25/17 04:00 NIV Bilevel 35 08/25/17 04:00 67 22 138/94 97 NIV Bilevel 35.00 08/25/17 03:00 60 22 142/94 96 NIV Bilevel 35.00 08/25/17 02:58 66 22 96 35.00 08/25/17 02:00 98.3 08/25/17 02:00 72 28 137/93 92 NIV Bilevel 35.00 08/25/17 01:00 60 16 124/80 96 NIV Bilevel 35.00 08/25/17 01:00 60 08/25/17 00:46 63 21 96 35.00 08/25/17 00:00 NIV Bilevel 35 08/25/17 00:00 60 20 123/84 96 NIV Bilevel 35.00 08/24/17 23:00 73 20 128/70 95 NIV Bilevel 35.00 08/24/17 22:50 84 24 93 35.00 08/24/17 22:00 76 24 131/80 95 Vapotherm 50.00 14.00 08/24/17 21:00 87 30 93 Vapotherm 50.00 14.00 08/24/17 20:34 99.4 08/24/17 20:00 96 37 149/88 93 Vapotherm 50.00 14.00 08/24/17 20:00 Vapotherm 14.00 50 08/24/17 19:11 94 Vapotherm 14.00 50 08/24/17 19:00 101.6 Vapotherm 50.00 14.00 08/24/17 19:00 97 26 146/106 94 Vapotherm 50.00 14.00 08/24/17 19:00 97 08/24/17 18:00 85 22 147/101 92 Vapotherm 50.00 14.00 08/24/17 17:00 92 38 143/91 93 Vapotherm 50.00 14.00 08/24/17 16:14 Vapotherm 14.00 50 08/24/17 16:00 100.5 91 31 143/90 92 Vapotherm 50.00 14.00 08/24/17 15:00 101 26 149/85 93 Vapotherm 50.00 14.00 08/24/17 14:24 93 Vapotherm 14.00 50 08/24/17 14:00 95 37 149/95 90 Vapotherm 50.00 14.00 08/24/17 13:00 76 08/24/17 13:00 76 34 149/102 92 Vapotherm 50.00 14.00 08/24/17 12:43 81 34 143/97 92 Vapotherm 50.00 14.00 08/24/17 12:00 80 31 150/100 89 Vapotherm 50.00 14.00 08/24/17 12:00 Vapotherm 50.00 14.00 08/24/17 11:53 90 Vapotherm 50.00 12.00 08/24/17 11:47 91 Vapotherm 10.00 50 08/24/17 11:15 Vapotherm 14.00 50 08/24/17 11:12 99.5 88 15 136/88 96 Vapotherm 50.00 10.00 08/24/17 10:00 94 35 154/86 95 Vapotherm 50.00 10.00 08/24/17 09:00 93 25 90 Vapotherm 50.00 10.00 08/24/17 08:52 149/89 08/24/17 08:30 Vapotherm 10.00 50 General Appearance: No Apparent Distress HEENT: PERRL/EOMI Neck: Full Range of Motion Respiratory: Chest Non Tender, Rhonci Cardiovascular: Regular Rate, Rhythm Capillary Refill: Greater Than 3 Seconds Gastrointestinal: normal bowel sounds, non tender, soft Extremity: Normal Capillary Refill, Inflammation (much less edema with soft compartments. superficial erythema about same.), Swelling Neurologic/Psychiatric: Alert, Oriented x3 Skin: Normal Color Lymphatic: No Adenopathy Results Lab Laboratory Tests 08/24/17 04:11 08/25/17 04:35 Assessment/Plan Assessment/Plan Severe cellulitis with sepsis left upper extremity with GAS -Continue vanco, clindamycin and zosyn for now -Check CT of left arm r/o abscess/NEC pneumonia with Pulmonary edema s/p lasix -Since checking CT of arm will repeat CT of chest to r/o empyema pulmonary edema. -S/p lasix with improvement. I discussed with medical team regarding plan of care. 60 min of ICU time spent with patient and medical team. Clinical Quality Measures DVT/VTE Risk/Contraindication: Risk Factor Score Per Nursin RFS Level Per Nursing on Admit: 1=Low/No VTE PPX KEVIN ROBLES DO Aug 25, 2017 08:12
[2017-08-25] MEDS ORDERED: NS 100 ML (IVPB) BAG IV ONE (09:15)
[2017-08-25] MEDS ORDERED: IOHEXOL 350 MG/ML 150 ML (OMNIPAQUE 350) VIAL IV ONE (09:15)
[2017-08-25] MEDS: OSELTAMIVIR 75 MG (TAMIFLU) BOX OF 10 PO SCH (09:53)
--- NOTE | 2017-08-25 09:57 | Diagnostic Imaging Report ---
INDICATION: Pneumonia, followup. TECHNIQUE: Single view chest at 4:58 AM. CORRELATION STUDY: 08/24/2017. FINDINGS: Bibasilar infiltrates persist, stable to perhaps slightly improved. Small effusions are also suspect. Upper lung duval are clear. Heart size is borderline enlarged. Vasculature is within normal limits. IMPRESSION: Bibasilar areas of atelectasis or infiltrate persist but may be slightly improved. Small effusions. Dictated by: Dictated on workstation # [id number]
[2017-08-25] MEDS: FAMOTIDINE 20 MG (PEPCID) TABLET PO SCH ×2 (10:09→21:24)
[2017-08-25] MEDS: ENOXAPARIN 40 MG/0.4 ML (LOVENOX) SYR SC SCH (10:09)
[2017-08-25] MEDS: LACTOBACILLUS Acidoph/Bulgar (LACTINEX/FLORANEX) TAB PO SCH ×4 (10:09→21:24)
--- NOTE | 2017-08-25 10:40 | Diagnostic Imaging Report ---
PROCEDURE: CT chest with contrast only. TECHNIQUE: Multiple contiguous axial images were obtained through the chest after administration of intravenous contrast. INDICATION: Fever, leukocytosis, and pneumonia followup. 80 mL of Omnipaque 350 is administered intravenously. FINDINGS: When compared to CT from 08/22/2017, there is worsening bilateral lower lobe consolidation with air bronchograms suggestive of pneumonia. There are bilateral small/ moderate effusions more on the right side. There is no pneumothorax. No mass or suspicious nodule seen. There is no abscess. The thoracic aorta is normal in caliber. No mediastinal mass or significantly enlarged lymph node is seen. There are enlarged left axillary lymph nodes up to 1.5 cm in short axis. The osseous structures appear grossly unremarkable. IMPRESSION: Worsening bilateral lower lobe pneumonia with small/ moderate pleural effusions slightly more on the right side. Dictated by: Dictated on workstation # [id number]
--- NOTE | 2017-08-25 11:30 | Diagnostic Imaging Report ---
CT angiogram of the left upper extremity. INDICATION: Rule out abscess versus necrotizing fasciitis. FINDINGS: There is subcutaneous edema involving the forearm and arm and wrist area seen with no evidence of abscess. There is no soft tissue air to suggest necrotizing fasciitis. Please note that necrotizing fasciitis is primarily a clinical diagnosis, however, and lack of soft tissue air in the deep tissue does not completely rule out this diagnosis based on CT scan findings. No radiopaque foreign body is identified. The left subclavian, axillary, brachial, ulnar, and radial arteries appear normal. IMPRESSION: Prominent subcutaneous edema in the left upper extremity with no abscess, radiopaque foreign body, or soft tissue air identified. ? Dictated by: Dictated on workstation # [id number]
--- NOTE | 2017-08-25 16:49 | Progress Note-Hospitalist ---
Standard Progress Note Progress Notes/Assess & Plan Date Seen 08/25/17 Time Seen by Provider: 16:48 Diagnosis cellulitis Assess & Plan/Chief Complaint The patient is a 22-year-old white male who was admitted after he developed a raging cellulitis in his left upper extremity 4 days ago. He had had a surgical removal of a wart described as having been inflamed. Labs Laboratory Tests 08/24/17 04:11 08/25/17 04:35 YOSEPH PEARL MD Aug 25, 2017 16:49
[2017-08-25] MEDS ORDERED: FUROSEMIDE 20 MG (LASIX) TAB PO NR (17:00)
[2017-08-26 00:05] VITALS: BP 164/92
[2017-08-26] MEDS: CLINDAMYCIN 600 MG/NS 50 ML IVPB IV SCH ×6 (00:59→17:20)
[2017-08-26] MEDS: VANCOMYCIN 1250 MG/NS 250 ML IVPB IV SCH ×6 (01:45→17:52)
[2017-08-26 04:00] VITALS: BP 163/87
[2017-08-26] MEDS: PIPERACILLIN/TAZOBACTAM 4.5 GM/NS100 ML IVPB IV SCH ×6 (05:24→21:01)
[2017-08-26] MEDS: RT-ALBUTEROL SULF 2.5 MG/3 ML PRE-MIX VIAL IH SCH ×4 (07:01→19:06)
[2017-08-26 08:00] VITALS: BP 178/81
--- NOTE | 2017-08-26 08:30 | Pulmonary Progress Note ---
Exam Exam Vital Signs Date Time Temp Pulse Resp B/P (MAP) Pulse Ox O2 Delivery O2 Flow Rate FiO2 08/26/17 07:07 96 Nasal Cannula 3.00 08/26/17 04:00 99.0 67 18 163/87 97 Nasal Cannula 3.00 08/26/17 00:05 100.0 85 19 164/92 96 Nasal Cannula 3.00 08/25/17 20:00 Nasal Cannula 3.00 08/25/17 19:02 97.8 65 20 179/86 92 Nasal Cannula 3.00 08/25/17 18:35 96 Nasal Cannula 3.00 08/25/17 18:00 78 13 162/93 96 Nasal Cannula 3.00 08/25/17 17:00 79 33 176/110 97 Nasal Cannula 3.00 08/25/17 16:00 175/111 Nasal Cannula 3.00 08/25/17 15:32 Nasal Cannula 3.00 08/25/17 15:00 75 28 94 Nasal Cannula 3.00 08/25/17 14:00 74 12 154/101 96 Nasal Cannula 3.00 08/25/17 13:00 67 25 166/101 97 Nasal Cannula 3.00 08/25/17 13:00 70 08/25/17 12:00 74 17 194/113 95 Nasal Cannula 3.00 08/25/17 12:00 Nasal Cannula 3.00 08/25/17 11:25 96 Nasal Cannula 3.00 08/25/17 11:00 76 22 143/100 96 Nasal Cannula 3.00 08/25/17 10:06 75 95 32 08/25/17 10:00 81 15 149/100 97 Nasal Cannula 3.00 08/25/17 09:00 70 11 156/112 94 Nasal Cannula 3.00 General Appearance: No Apparent Distress HEENT: PERRL/EOMI Neck: Full Range of Motion Respiratory: Chest Non Tender, Rhonci Cardiovascular: Regular Rate, Rhythm Capillary Refill: Greater Than 3 Seconds Gastrointestinal: normal bowel sounds, non tender, soft Extremity: Normal Capillary Refill, Inflammation (much less edema with soft compartments. superficial erythema about same.), Swelling Neurologic/Psychiatric: Alert, Oriented x3 Skin: Normal Color Lymphatic: No Adenopathy Results Lab Laboratory Tests 08/25/17 04:35 Assessment/Plan Assessment/Plan Severe cellulitis with sepsis left upper extremity with GAS -Continue vanco, clindamycin and zosyn for now -Check CT of left arm r/o abscess/NEC -CT reviewed will repeat labs pneumonia with Pulmonary edema s/p lasix -repeat labs pulmonary edema. 233 Clinical Quality Measures DVT/VTE Risk/Contraindication: Risk Factor Score Per Nursin RFS Level Per Nursing on Admit: 1=Low/No VTE PPX KEVIN ROBLES DO Aug 26, 2017 08:30
[2017-08-26] MEDS: LACTOBACILLUS Acidoph/Bulgar (LACTINEX/FLORANEX) TAB PO SCH ×4 (08:57→21:01)
[2017-08-26] MEDS: FAMOTIDINE 20 MG (PEPCID) TABLET PO SCH ×2 (08:57→21:01)
[2017-08-26] MEDS: ENOXAPARIN 40 MG/0.4 ML (LOVENOX) SYR SC SCH (08:57)
[2017-08-26 09:13] LABS: BASOPHILS % (AUTO) 0 % (0-10); EOSINOPHILS # (AUTO) 0.2 10^3/uL (0.0-0.3); EOSINOPHILS % (AUTO) 2 % (0-10); LYMPHOCYTES # (AUTO) 1.1 X 10^3 (1.0-4.0); LYMPHOCYTES % (AUTO) 11 % (12-44); MEAN CORPUSCULAR HEMOGLOBIN 29 PG (25-34); MEAN CORPUSCULAR HGB CONC 35 G/DL (32-36); MEAN CORPUSCULAR VOLUME 84 FL (80-99); MEAN PLATELET VOLUME 8.9 FL (7.4-10.4); MONOCYTES # (AUTO) 1.1 X 10^3 (0.0-1.0); MONOCYTES % (AUTO) 11 % (0-12); NEUTROPHILS # (AUTO) 7.3 X 10^3 (1.8-7.8); NEUTROPHILS % (AUTO) 76 % (42-75); PLATELET COUNT 252 10^3/uL (130-400); RED BLOOD COUNT 4.18 10^6/uL (4.35-5.85); RED CELL DISTRIBUTION WIDTH 11.6 % (10.0-14.5); WHITE BLOOD COUNT 9.7 10^3/uL (4.3-11.0)
[2017-08-26 09:38] LABS: ANION GAP 10 MMOL/L (5-14); BLOOD UREA NITROGEN 12 MG/DL (7-18); BUN/CREATININE RATIO 9; CARBON DIOXIDE 27 MMOL/L (21-32); CHLORIDE 104 MMOL/L (98-107); CREATININE SERUM 1.28 MG/DL (0.60-1.30); GFR ESTIMATED > 60; GLUCOSE 96 MG/DL (70-105); MAGNESIUM 2.1 MG/DL (1.8-2.4); PHOSPHORUS 4.1 MG/DL (2.3-4.7); POTASSIUM 3.6 MMOL/L (3.6-5.0); SODIUM 141 MMOL/L (135-145)
[2017-08-26] MEDS ORDERED: FUROSEMIDE 40 MG/4 ML INJ (LASIX) IVP NR (11:45)
[2017-08-26] MEDS ORDERED: KCL 20 MEQ TAB (K-DUR) PO NR (11:45)
[2017-08-26 12:00] VITALS: BP 174/81
--- NOTE | 2017-08-26 12:28 | Progress Note (SOAP) ---
Subjective Date Seen by Provider: Aug 25, 2017 Time Seen by Provider: 16:00 Subjective/Events-last exam doing better. edema/erythema improving significantly. much less oxygen requirement(3L NC). can diet and having BM's. Objective Exam Vital Signs Date Time Temp Pulse Resp B/P (MAP) Pulse Ox O2 Delivery O2 Flow Rate FiO2 08/26/17 11:22 98 Nasal Cannula 2.00 08/26/17 09:28 Nasal Cannula 2.00 08/26/17 08:00 98.6 66 20 178/81 95 Nasal Cannula 3.00 08/26/17 07:07 96 Nasal Cannula 3.00 08/26/17 04:00 99.0 67 18 163/87 97 Nasal Cannula 3.00 08/26/17 00:05 100.0 85 19 164/92 96 Nasal Cannula 3.00 08/25/17 20:00 Nasal Cannula 3.00 08/25/17 19:02 97.8 65 20 179/86 92 Nasal Cannula 3.00 08/25/17 18:35 96 Nasal Cannula 3.00 08/25/17 18:00 78 13 162/93 96 Nasal Cannula 3.00 08/25/17 17:00 79 33 176/110 97 Nasal Cannula 3.00 08/25/17 16:00 175/111 Nasal Cannula 3.00 08/25/17 15:32 Nasal Cannula 3.00 08/25/17 15:00 75 28 94 Nasal Cannula 3.00 08/25/17 14:00 74 12 154/101 96 Nasal Cannula 3.00 08/25/17 13:00 67 25 166/101 97 Nasal Cannula 3.00 08/25/17 13:00 70 Capillary Refill : Greater Than 3 Seconds General Appearance: No Apparent Distress HEENT: PERRL/EOMI Neck: Full Range of Motion Respiratory: Chest Non Tender, Normal Breath Sounds Cardiovascular: Regular Rate, Rhythm Gastrointestinal: normal bowel sounds, non tender, soft Extremity: Normal Capillary Refill Neurologic/Psychiatric: Alert, Oriented x3 Skin: Normal Color Lymphatic: No Adenopathy Results Lab Laboratory Tests 08/26/17 09:00: White Blood Count 9.7, Red Blood Count 4.18L, Hemoglobin 12.1L, Hematocrit 35L, Mean Corpuscular Volume 84, Mean Corpuscular Hemoglobin 29, Mean Corpuscular Hemoglobin Concent 35, Red Cell Distribution Width 11.6, Platelet Count 252, Mean Platelet Volume 8.9, Neutrophils (%) (Auto) 76H, Lymphocytes (%) (Auto) 11L , Monocytes (%) (Auto) 11, Eosinophils (%) (Auto) 2, Basophils (%) (Auto) 0, Neutrophils # (Auto) 7.3, Lymphocytes # (Auto) 1.1, Monocytes # (Auto) 1.1H, Eosinophils # (Auto) 0.2, Basophils # (Auto) 0.0, Sodium Level 141, Potassium Level 3.6, Chloride Level 104, Carbon Dioxide Level 27, Anion Gap 10, Blood Urea Nitrogen 12, Creatinine 1.28, Estimat Glomerular Filtration Rate > 60, BUN/ Creatinine Ratio 9, Glucose Level 96, Calcium Level 9.0, Phosphorus Level 4.1, Magnesium Level 2.1, B-Type Natriuretic Peptide 177.0H Microbiology 08/21/17 Blood Culture - Preliminary, Resulted No growth 08/22/17 Influenza Types A,B Antigen (TERRY) - Final, Complete 08/22/17 Gram Stain - Final, Complete 08/22/17 Wound Culture - Final, Complete Streptococcus Pyogenes Grp A Staph, 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 pulmonary edema. on lasix continue elvevation, ice and abx. PICC in am for potential termite exterminator helper IV abx. Final Diagnosis GAS cellulitis left arm with sepsis syndrome and pneumonia. improving with IV abx therapy, will continue. transfer to floor. Clinical Quality Measures DVT/VTE Risk/Contraindication: Risk Factor Score Per Nursin RFS Level Per Nursing on Admit: 1=Low/No VTE PPX WILIAM CHACKO MD Aug 26, 2017 12:28
--- NOTE | 2017-08-26 12:32 | Progress Note (SOAP) ---
Subjective Date Seen by Provider: Aug 26, 2017 Time Seen by Provider: 12:20 Subjective/Events-last exam doing well. left upper extremity improving. less erythema/edema. minimal nocturnal fevers. pain controlled. Objective Exam Vital Signs Date Time Temp Pulse Resp B/P (MAP) Pulse Ox O2 Delivery O2 Flow Rate FiO2 08/26/17 11:22 98 Nasal Cannula 2.00 08/26/17 09:28 Nasal Cannula 2.00 08/26/17 08:00 98.6 66 20 178/81 95 Nasal Cannula 3.00 08/26/17 07:07 96 Nasal Cannula 3.00 08/26/17 04:00 99.0 67 18 163/87 97 Nasal Cannula 3.00 08/26/17 00:05 100.0 85 19 164/92 96 Nasal Cannula 3.00 08/25/17 20:00 Nasal Cannula 3.00 08/25/17 19:02 97.8 65 20 179/86 92 Nasal Cannula 3.00 08/25/17 18:35 96 Nasal Cannula 3.00 08/25/17 18:00 78 13 162/93 96 Nasal Cannula 3.00 08/25/17 17:00 79 33 176/110 97 Nasal Cannula 3.00 08/25/17 16:00 175/111 Nasal Cannula 3.00 08/25/17 15:32 Nasal Cannula 3.00 08/25/17 15:00 75 28 94 Nasal Cannula 3.00 08/25/17 14:00 74 12 154/101 96 Nasal Cannula 3.00 08/25/17 13:00 67 25 166/101 97 Nasal Cannula 3.00 08/25/17 13:00 70 Capillary Refill : Greater Than 3 Seconds General Appearance: No Apparent Distress HEENT: PERRL/EOMI Neck: Full Range of Motion Respiratory: Chest Non Tender, Normal Breath Sounds Cardiovascular: Regular Rate, Rhythm Gastrointestinal: normal bowel sounds, non tender, soft Extremity: Normal Capillary Refill, Swelling (erythema/edema improving daily with abx and elevation.) Neurologic/Psychiatric: Alert, Oriented x3 Skin: Normal Color Lymphatic: No Adenopathy Results Lab Laboratory Tests 08/26/17 09:00: White Blood Count 9.7, Red Blood Count 4.18L, Hemoglobin 12.1L, Hematocrit 35L, Mean Corpuscular Volume 84, Mean Corpuscular Hemoglobin 29, Mean Corpuscular Hemoglobin Concent 35, Red Cell Distribution Width 11.6, Platelet Count 252, Mean Platelet Volume 8.9, Neutrophils (%) (Auto) 76H, Lymphocytes (%) (Auto) 11L , Monocytes (%) (Auto) 11, Eosinophils (%) (Auto) 2, Basophils (%) (Auto) 0, Neutrophils # (Auto) 7.3, Lymphocytes # (Auto) 1.1, Monocytes # (Auto) 1.1H, Eosinophils # (Auto) 0.2, Basophils # (Auto) 0.0, Sodium Level 141, Potassium Level 3.6, Chloride Level 104, Carbon Dioxide Level 27, Anion Gap 10, Blood Urea Nitrogen 12, Creatinine 1.28, Estimat Glomerular Filtration Rate > 60, BUN/ Creatinine Ratio 9, Glucose Level 96, Calcium Level 9.0, Phosphorus Level 4.1, Magnesium Level 2.1, B-Type Natriuretic Peptide 177.0H Microbiology 08/21/17 Blood Culture - Preliminary, Resulted No growth 08/22/17 Influenza Types A,B Antigen (TERRY) - Final, Complete 08/22/17 Gram Stain - Final, Complete 08/22/17 Wound Culture - Final, Complete Streptococcus Pyogenes Grp A Staph, 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 pulmonary edema. on lasix continue elvevation, ice and abx. PICC in am for potential termite inspector IV abx. continue IV abx until completely afebrile. may continue OP IV abx. Clinical Quality Measures DVT/VTE Risk/Contraindication: Risk Factor Score Per Nursin RFS Level Per Nursing on Admit: 1=Low/No VTE PPX WILIAM CHACKO MD Aug 26, 2017 12:31
[2017-08-26 16:32] VITALS: BP 173/87
--- NOTE | 2017-08-26 18:00 | Progress Note-Hospitalist ---
Standard Progress Note Progress Notes/Assess & Plan Date Seen 08/26/17 Time Seen by Provider: 17:57 Diagnosis cellulitis Assess & Plan/Chief Complaint The patient is doing remarkably better. He is afebrile. The white blood count holds at 9000. He has SaO2 is greater than 95 percent on room air. Physical exam: The lungs are clear and easy. CV is regular. The left arm is remarkably better looking. The swelling is virtually gone in the entire arm. The color is now a dull brown and no erythema is noted. Impression: Cellulitis with remarkable improvement. Plan: If tomorrow's exam looks this good He can be discharged complete his course on oral antibiotics. Labs Laboratory Tests 08/25/17 04:35 08/26/17 09:00 YOSEPH PEARL MD Aug 26, 2017 17:59
[2017-08-26 19:06] VITALS: BP 148/88
[2017-08-27] VITALS: BP 128/75
[2017-08-27] MEDS: CLINDAMYCIN 600 MG/NS 50 ML IVPB IV SCH ×6 (00:53→16:57)
[2017-08-27] MEDS: VANCOMYCIN 1250 MG/NS 250 ML IVPB IV SCH ×2 (01:47)
[2017-08-27 03:46] VITALS: BP 157/90
[2017-08-27] MEDS: PIPERACILLIN/TAZOBACTAM 4.5 GM/NS100 ML IVPB IV SCH ×6 (05:28→20:40)
[2017-08-27 05:45] LABS: BASOPHILS % (AUTO) 0 % (0-10); EOSINOPHILS # (AUTO) 0.2 10^3/uL (0.0-0.3); EOSINOPHILS % (AUTO) 2 % (0-10); LYMPHOCYTES # (AUTO) 1.4 X 10^3 (1.0-4.0); LYMPHOCYTES % (AUTO) 14 % (12-44); MEAN CORPUSCULAR HEMOGLOBIN 28 PG (25-34); MEAN CORPUSCULAR HGB CONC 34 G/DL (32-36); MEAN CORPUSCULAR VOLUME 83 FL (80-99); MONOCYTES # (AUTO) 1.1 X 10^3 (0.0-1.0); MONOCYTES % (AUTO) 11 % (0-12); NEUTROPHILS # (AUTO) 7.2 X 10^3 (1.8-7.8); NEUTROPHILS % (AUTO) 72 % (42-75); PLATELET COUNT 253 10^3/uL (130-400); RED CELL DISTRIBUTION WIDTH 11.7 % (10.0-14.5)
[2017-08-27 06:09] LABS: ANION GAP 10 MMOL/L (5-14); BLOOD UREA NITROGEN 14 MG/DL (7-18); BUN/CREATININE RATIO 11; CALCIUM 8.9 MG/DL (8.5-10.1); CARBON DIOXIDE 27 MMOL/L (21-32); CHLORIDE 104 MMOL/L (98-107); CREATININE SERUM 1.32 MG/DL (0.60-1.30); GFR ESTIMATED > 60; GLUCOSE 98 MG/DL (70-105); MAGNESIUM 2.2 MG/DL (1.8-2.4); PHOSPHORUS 4.8 MG/DL (2.3-4.7); POTASSIUM 3.6 MMOL/L (3.6-5.0); SODIUM 141 MMOL/L (135-145)
[2017-08-27] MEDS: RT-ALBUTEROL SULF 2.5 MG/3 ML PRE-MIX VIAL IH SCH ×4 (07:31→19:29)
[2017-08-27] MEDS ORDERED: NS IV 500 ML 500 ML IV SCH (07:32)
[2017-08-27 08:00] VITALS: BP 152/94
--- NOTE | 2017-08-27 08:58 | Diagnostic Imaging Report ---
INDICATION: Pleural effusion. COMPARISON: 08/25/2017. FINDINGS: The lungs are clear on followup. No appreciable pleural fluid. There is no pneumothorax. A right PICC is at the SVC in good alignment. IMPRESSION: Clear chest on followup. The PICC line projects in good position. Dictated by: Dictated on workstation # [id number]
[2017-08-27] MEDS ORDERED: TROUGH ORDER-PHARMACY XX ONE (09:00)
[2017-08-27] MEDS: NS IV 1000 ML 1,000 ML IV SCH ×2 (09:13→16:57)
[2017-08-27] MEDS: FAMOTIDINE 20 MG (PEPCID) TABLET PO SCH ×2 (09:18→20:40)
[2017-08-27] MEDS: ENOXAPARIN 40 MG/0.4 ML (LOVENOX) SYR SC SCH (09:19)
[2017-08-27] MEDS: LACTOBACILLUS Acidoph/Bulgar (LACTINEX/FLORANEX) TAB PO SCH ×4 (09:19→20:40)
--- NOTE | 2017-08-27 11:58 | Progress Note-Hospitalist ---
Standard Progress Note Progress Notes/Assess & Plan Date Seen 08/27/17 Time Seen by Provider: 11:53 Diagnosis cellulitis Assess & Plan/Chief Complaint The patient continues to improve. He has remained off oxygen was satisfactory SaO2's. His white count remains normal. It is noted that his creatinine has climbed slightly since his admission. This would appear to be relative to both use of Lasix for his pulmonary edema and the use of vancomycin prophylactically with his aggressive infection. Accordingly he is been given a bolus of IV fluid in the vancomycin has been stopped. If the creatinine is the same or better tomorrow he can be dismissed on his previous home regimen of beta lactam plus clindamycin. Physical exam: He is alert and oriented. Lungs are clear to auscultation. CV is regular without murmur. The arm continues to look great with no erythema or swelling. The dorsal surface of the hand is peeling. Impression: Aggressive cellulitis with strep PYOGENES Plan: As above Labs Laboratory Tests 08/26/17 09:00 08/27/17 05:35 YOSEPH PEARL MD Aug 27, 2017 11:58
[2017-08-27 12:00] VITALS: BP 152/91
--- NOTE | 2017-08-27 13:16 | Progress Note (SOAP) ---
Subjective Date Seen by Provider: Aug 27, 2017 Time Seen by Provider: 13:00 Subjective/Events-last exam doing well. minimal fevers. minimal redness/erythema. Objective Exam Vital Signs Date Time Temp Pulse Resp B/P (MAP) Pulse Ox O2 Delivery O2 Flow Rate FiO2 08/27/17 10:45 96 Room Air 08/27/17 09:00 96 Room Air 08/27/17 08:00 98.1 68 20 152/94 96 Room Air 08/27/17 07:31 93 Room Air 08/27/17 03:46 98.2 68 20 157/90 95 Room Air 08/27/17 00:00 99.2 81 18 128/75 97 Room Air 08/26/17 21:00 Room Air 08/26/17 19:07 98 Nasal Cannula 08/26/17 19:06 148/88 08/26/17 16:32 173/87 08/26/17 16:06 98.7 85 16 100 Room Air 08/26/17 13:59 97 Nasal Cannula 1.00 I & O 08/28/17 07:00 Intake Total 654 ml Balance 654 ml Capillary Refill : Less Than 3 SecondsLess Than 3 Seconds General Appearance: No Apparent Distress HEENT: PERRL/EOMI Neck: Full Range of Motion Respiratory: Lungs Clear, Normal Breath Sounds Cardiovascular: Regular Rate, Rhythm Gastrointestinal: normal bowel sounds, non tender, soft Extremity: Normal Capillary Refill Neurologic/Psychiatric: Alert, Oriented x3 Skin: Normal Color Lymphatic: No Adenopathy Results Lab Laboratory Tests 08/27/17 05:35: White Blood Count 10.0, Red Blood Count 4.10L, Hemoglobin 11.6L, Hematocrit 34L , Mean Corpuscular Volume 83, Mean Corpuscular Hemoglobin 28, Mean Corpuscular Hemoglobin Concent 34, Red Cell Distribution Width 11.7, Platelet Count 253, Mean Platelet Volume 9.0, Neutrophils (%) (Auto) 72, Lymphocytes (%) (Auto) 14, Monocytes (%) (Auto) 11, Eosinophils (%) (Auto) 2, Basophils (%) (Auto) 0, Neutrophils # (Auto) 7.2, Lymphocytes # (Auto) 1.4, Monocytes # (Auto) 1.1H, Eosinophils # (Auto) 0.2, Basophils # (Auto) 0.0, Sodium Level 141, Potassium Level 3.6, Chloride Level 104, Carbon Dioxide Level 27, Anion Gap 10, Blood Urea Nitrogen 14, Creatinine 1.32H, Estimat Glomerular Filtration Rate > 60, BUN /Creatinine Ratio 11, Glucose Level 98, Calcium Level 8.9, Phosphorus Level 4.8H , Magnesium Level 2.2 08/27/17 08:58: Vancomycin Level Trough 22.7H Microbiology 08/21/17 Blood Culture - Preliminary, Resulted No growth 08/22/17 Influenza Types A,B Antigen (TERRY) - Final, Complete 08/22/17 Gram Stain - Final, Complete 08/22/17 Wound Culture - Final, Complete Streptococcus Pyogenes Grp A Staph, Coag Neg (Diesel Engine Inspector) Assessment/Plan Assessment/Plan Assess & Plan/Chief Complaint GAS severe cellulitis and sepsis left upper extremity. pulmonary edema. on lasix. no pleural effusion. continue elvevation, ice and abx. 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 continue IV abx until completely afebrile. may continue OP IV abx. Clinical Quality Measures DVT/VTE Risk/Contraindication: Risk Factor Score Per Nursin RFS Level Per Nursing on Admit: 1=Low/No VTE PPX WILIAM CHACKO MD Aug 27, 2017 1:16 pm
[2017-08-27 16:00] VITALS: BP 145/96
[2017-08-27 19:15] VITALS: BP 147/95
[2017-08-28 00:20] VITALS: BP 128/73
[2017-08-28] MEDS: CLINDAMYCIN 600 MG/NS 50 ML IVPB IV SCH ×6 (00:56→16:12)
[2017-08-28] MEDS: NS IV 1000 ML 1,000 ML IV SCH ×2 (03:21→08:35)
[2017-08-28 04:15] VITALS: BP 124/77
[2017-08-28] MEDS: PIPERACILLIN/TAZOBACTAM 4.5 GM/NS100 ML IVPB IV SCH ×4 (06:03→14:05)
[2017-08-28 06:28] LABS: BASOPHILS % (AUTO) 0 % (0-10); EOSINOPHILS # (AUTO) 0.2 10^3/uL (0.0-0.3); EOSINOPHILS % (AUTO) 2 % (0-10); LYMPHOCYTES # (AUTO) 1.4 X 10^3 (1.0-4.0); LYMPHOCYTES % (AUTO) 16 % (12-44); MEAN CORPUSCULAR HEMOGLOBIN 29 PG (25-34); MEAN CORPUSCULAR HGB CONC 34 G/DL (32-36); MEAN CORPUSCULAR VOLUME 85 FL (80-99); MEAN PLATELET VOLUME 9.2 FL (7.4-10.4); MONOCYTES # (AUTO) 0.9 X 10^3 (0.0-1.0); MONOCYTES % (AUTO) 10 % (0-12); NEUTROPHILS # (AUTO) 6.4 X 10^3 (1.8-7.8); NEUTROPHILS % (AUTO) 72 % (42-75); PLATELET COUNT 269 10^3/uL (130-400); RED BLOOD COUNT 3.89 10^6/uL (4.35-5.85); RED CELL DISTRIBUTION WIDTH 11.7 % (10.0-14.5); WHITE BLOOD COUNT 8.9 10^3/uL (4.3-11.0)
[2017-08-28 06:41] LABS: ANION GAP 9 MMOL/L (5-14); BLOOD UREA NITROGEN 13 MG/DL (7-18); BUN/CREATININE RATIO 11; CARBON DIOXIDE 24 MMOL/L (21-32); CHLORIDE 107 MMOL/L (98-107); CREATININE SERUM 1.15 MG/DL (0.60-1.30); GFR ESTIMATED > 60; GLUCOSE 91 MG/DL (70-105); MAGNESIUM 2.3 MG/DL (1.8-2.4); POTASSIUM 4.1 MMOL/L (3.6-5.0); SODIUM 140 MMOL/L (135-145)
[2017-08-28] MEDS: RT-ALBUTEROL SULF 2.5 MG/3 ML PRE-MIX VIAL IH SCH (07:00)
[2017-08-28 08:00] VITALS: BP 138/89
[2017-08-28] MEDS: FAMOTIDINE 20 MG (PEPCID) TABLET PO SCH (08:34)
[2017-08-28] MEDS: ENOXAPARIN 40 MG/0.4 ML (LOVENOX) SYR SC SCH (08:34)
[2017-08-28] MEDS: LACTOBACILLUS Acidoph/Bulgar (LACTINEX/FLORANEX) TAB PO SCH ×2 (08:34→13:53)
[2017-08-28] MEDS ORDERED: AMOX-358 PO (09:20)
[2017-08-28] MEDS ORDERED: CLIN150C17 PO (09:20)
--- NOTE | 2017-08-28 11:19 | Discharge Summary-Hospitalist ---
Diagnosis/Chief Complaint Date of Admission Aug 21, 2017 at 18:16 Date of Discharge Discharge Date: Aug 28, 2017 Admission Diagnosis cellulitis Discharge Diagnosis (1) Acute hypoxemic respiratory failure Status: Acute Assessment & Plan: 2/2 pna/sepsis BG with significant hypoxia still despite high FiO2s Responded well to BiPA BiPAP prn and at night Consult Pulm Continue MAT protocol Trial Lasix today at over 6L positive since admission (2) Sepsis Status: Acute Assessment & Plan: Leukocytosis improving Fever curve trending tdown Continue IV abx (Clindamycin, Vanc, Zosyn) Continue Tamiflu (3) Cellulitis Status: Acute Assessment & Plan: Dr Garcia consulted Continue IV abx as above (4) Normocytic anemia Status: Acute Assessment & Plan: Likely dilutional Trend, has been stable (5) Hypokalemia Status: Acute Assessment & Plan: Will replace (6) Prophylactic measure Assessment & Plan: Saline Lock Reg Diet Lovenox Discharge Summary Discharge Physical Examination Allergies: Coded Allergies: No Known Drug Allergies (Unverified , 08/21/17) Vitals & I&Os Vital Signs Date Time Temp Pulse Resp B/P (MAP) Pulse Ox O2 Delivery O2 Flow Rate FiO2 08/28/17 08:00 97.0 81 20 138/89 97 Room Air 08/28/17 07:04 21 08/26/17 13:59 1.00 Hospital Course Notes from 08/28/17 Chart Review: WBC 8.9 Hgb 11.2 Patient Interview: Pt confirms that Dr. Garcia will see pt at first of the week Abx were discussed with the pt, these will be PO Pt states he thinks he already had his pain meds refilled, but is unsure Pt confirms having BMs Pt confirms eating and drinking Pt states his arm is fine, just peeling. Pt states this has been scary for him AFVSS, left arm no erythema and no drainage, nl ROM nl sensation of fingers Plan: Follow up with Dr. Garcia Abx to pharmacy Scribed by Margo Dennison under direct supervision of Dr. Bee Victoria. Hospital course: patient had a lengthy hospital course which included acute respiratory failure requiring transfer to ICU likely due to fluid shift into pulmonary edema from sepsis treatment but was maintained on IV abx throughout the entire course and was monitored closely along with lab monitoring. Overall he improved except his creat did increase to 1.3 from Vanc and that was managed conservatively and was able to be DC on PO abx with Friday appt with Dr Garcia and PICC will be left in place in case IV abx are needed when Dr Garcia evaluates him on Friday. Labs (last 24 hrs) Laboratory Tests 08/28/17 05:15: Phosphorus Level 3.7 08/28/17 06:00: White Blood Count 8.9, Red Blood Count 3.89L, Hemoglobin 11.2L, Hematocrit 33L, Mean Corpuscular Volume 85, Mean Corpuscular Hemoglobin 29, Mean Corpuscular Hemoglobin Concent 34, Red Cell Distribution Width 11.7, Platelet Count 269, Mean Platelet Volume 9.2, Neutrophils (%) (Auto) 72, Lymphocytes (%) (Auto) 16, Monocytes (%) (Auto) 10, Eosinophils (%) (Auto) 2, Basophils (%) (Auto) 0, Neutrophils # (Auto) 6.4, Lymphocytes # (Auto) 1.4, Monocytes # (Auto) 0.9, Eosinophils # (Auto) 0.2, Basophils # (Auto) 0.0, Sodium Level 140, Potassium Level 4.1, Chloride Level 107, Carbon Dioxide Level 24, Anion Gap 9, Blood Urea Nitrogen 13, Creatinine 1.15, Estimat Glomerular Filtration Rate > 60, BUN/ Creatinine Ratio 11, Glucose Level 91, Calcium Level 9.0, Magnesium Level 2.3 Microbiology 08/21/17 Blood Culture - Final, Complete No growth 08/22/17 Influenza Types A,B Antigen (TERRY) - Final, Complete 08/22/17 Gram Stain - Final, Complete 08/22/17 Wound Culture - Final, Complete Streptococcus Pyogenes Grp A Staph, Coag Neg (Pivot End Polisher) Pending Labs Laboratory Tests 08/28/17 05:15: Phosphorus Level 3.7 08/28/17 06:00: White Blood Count 8.9, Red Blood Count 3.89, Hemoglobin 11.2, Hematocrit 33, Mean Corpuscular Volume 85, Mean Corpuscular Hemoglobin 29, Mean Corpuscular Hemoglobin Concent 34, Red Cell Distribution Width 11.7, Platelet Count 269, Mean Platelet Volume 9.2, Neutrophils (%) (Auto) 72, Lymphocytes (%) (Auto) 16, Monocytes (%) (Auto) 10, Eosinophils (%) (Auto) 2, Basophils (%) (Auto) 0, Neutrophils # (Auto) 6.4, Lymphocytes # (Auto) 1.4, Monocytes # (Auto) 0.9, Eosinophils # (Auto) 0.2, Basophils # (Auto) 0.0, Sodium Level 140, Potassium Level 4.1, Chloride Level 107, Carbon Dioxide Level 24, Anion Gap 9, Blood Urea Nitrogen 13, Creatinine 1.15, Estimat Glomerular Filtration Rate > 60, BUN/ Creatinine Ratio 11, Glucose Level 91, Calcium Level 9.0, Magnesium Level 2.3 Discharge Home Medications: Active Scripts Active Clindamycin HCl 150 Mg Capsule 450 Mg PO Q8H Augmentin 875-125 Tablet (Amoxicillin/Potassium Clav) 1 Each Tablet 1 Each PO BID Reported Hydrocodon-Acetaminophn 10-325 (Hydrocodone/Acetaminophen) 1 Each Tablet 1 Tab PO Q4H PRN Instructions to patient/family Please see electronic discharge instructions given to patient. Clinical Quality Measures DVT/VTE Risk/Contraindication: Risk Factor Score Per Nursin RFS Level Per Nursing on Admit: 1=Low/No VTE PPX Problem Qualifiers (1) Sepsis: Sepsis type: Streptococcus group A Qualified Codes: A40.0 - Sepsis due to Streptococcus, group A (2) Cellulitis: Site of cellulitis: extremity Site of cellulitis of extremity: upper extremity Laterality: left Qualified Codes: L03.114 - Cellulitis of left upper limb BEE VICTORIA DO Aug 28, 2017 11:19
--- NOTE | 2017-08-28 11:27 | Pulmonary Progress Note ---
Subjective Time Seen by Provider: 11:26 Subjective/Events-last exam Pt is doing much better. No complications noted. Exam Exam Vital Signs Date Time Temp Pulse Resp B/P (MAP) Pulse Ox O2 Delivery O2 Flow Rate FiO2 08/28/17 08:00 97.0 81 20 138/89 97 Room Air 08/28/17 07:04 60 18 21 08/28/17 07:00 96 Room Air 08/28/17 04:15 98.6 73 18 124/77 95 Room Air 08/28/17 00:20 99.0 78 18 128/73 95 Room Air 08/27/17 19:30 97 Room Air 08/27/17 19:15 98.6 70 18 147/95 99 Room Air 08/27/17 16:00 97.5 70 16 145/96 100 Room Air 08/27/17 15:46 97 Room Air 08/27/17 12:00 98.2 87 22 152/91 99 Room Air General Appearance: No Apparent Distress HEENT: PERRL/EOMI Neck: Full Range of Motion Respiratory: Lungs Clear, Normal Breath Sounds Cardiovascular: Regular Rate, Rhythm Capillary Refill: Less Than 3 Seconds Gastrointestinal: normal bowel sounds, non tender, soft Extremity: Normal Capillary Refill Neurologic/Psychiatric: Alert, Oriented x3 Skin: Normal Color Lymphatic: No Adenopathy Results Lab Laboratory Tests 08/27/17 05:35 08/28/17 06:00 Assessment/Plan Assessment/Plan Severe cellulitis with sepsis left upper extremity with GAS -clindamycin and zosyn pneumonia with Pulmonary edema s/p lasix pulmonary edema.-- much improved Pt is doing better pulmonary [place]ourke. I am going to sign off please call with any questions. 232 Clinical Quality Measures DVT/VTE Risk/Contraindication: Risk Factor Score Per Nursin RFS Level Per Nursing on Admit: 1=Low/No VTE PPX KEVIN ROBLES DO Aug 28, 2017 11:27
[2017-08-28 12:35] VITALS: BP 139/91
[2017-08-28 15:37] VITALS: BP 127/81
[2017-08-28 18:26] VITALS: BP 127/81
== END 2017-08-28 16:55 | disposition home or self-care (01) | DRG 871 ==
LOC: EDUNIT# 15:57 → ER 15:58 → 4TH 18:16 → ICU 08-22 22:36 → 4TH 08-25 18:57
PROVIDERS: ADMIT Family Medicine; ATTEND Family Medicine
DX: A40.0 Sepsis due to streptococcus, group A (principal); J96.01 Acute respiratory failure with hypoxia; L03.114 Cellulitis of left upper limb; J18.9 Pneumonia, unspecified organism; J90 Pleural effusion, not elsewhere classified; J81.1 Chronic pulmonary edema; D64.9 Anemia, unspecified; E87.6 Hypokalemia
CPT/HCPCS: 36415; 36569; 71010; 71260; 71275; 73130; 73206; 76937; 80048; 80053; 80202; 82805; 83605; 83735; 83880; 84100; 85007; 85025; 85027; 86141; 86703; 87040; 87070; 87075; 87081; 87205; 87804; 93005; 93306; 94640; 94660; 94664; 94760; 96361; 96365; 96375

== ENCOUNTER 2017-09-03 07:55 | Outpatient (RCR) | payer BC ==
[2017-08-29 08:46] VITALS: BP 129/69
[2017-08-29] MEDS: CLINDAMYCIN 900 MG/50 ML IVPB 50 ML IV SCH ×2 (09:02→20:30)
[2017-08-29 20:32] VITALS: BP 123/79
[2017-08-29 20:58] VITALS: BP 123/79
[2017-08-30] MEDS: CLINDAMYCIN 900 MG/50 ML IVPB 50 ML IV SCH ×2 (08:46→20:20)
[2017-08-30 09:20] VITALS: BP 105/69
[2017-08-30 20:15] VITALS: BP 123/77
[2017-08-31 08:30] VITALS: BP 113/75
[2017-08-31] MEDS: CLINDAMYCIN 900 MG/NS 50 ML IVPB IV SCH ×4 (08:56→20:08)
[2017-08-31 20:12] VITALS: BP 111/64
[2017-08-31 20:42] VITALS: BP 111/64
[2017-09-01] MEDS: CLINDAMYCIN 900 MG/NS 50 ML IVPB IV SCH ×4 (08:05→20:03)
[2017-09-01 08:40] VITALS: BP 120/80
[2017-09-01 20:00] VITALS: BP 123/74
[2017-09-02 08:15] VITALS: BP 123/77
[2017-09-02] MEDS: CLINDAMYCIN 900 MG/NS 50 ML IVPB IV SCH ×2 (08:15)
[2017-09-02 20:00] VITALS: BP 119/72
[~2017-09-03] VITALS: Ht 188 cm; Wt 88.2 kg
[~2017-09-03 07:55] MED LIST changes: +AMOX-358 PO; +CLIN150C17 PO; +CLINDAMYCIN 900 MG/50 ML IVPB 50 ML IV ONE; +CLINDAMYCIN 900 MG/NS 50 ML IVPB IV SCH
[2017-09-03 08:03] VITALS: BP 119/72
--- NOTE | 2017-09-04 09:51 | Physician Query-Final Dx ---
ALLI BROWN 09/04/17 0951: Clinic Account Progress/Dx Physician Query: Please give a diagnosis for the Clindamycin treatment thank you Date of Service Sep 03, 2017 at 07:55 WILIAM CHACKO MD 09/04/17 1039: Clinic Account Progress/Dx DIAGNOSIS: Diagnosis group A beta-hemolytic streptococcus bacteremia. ALLI BROWN Sep 04, 2017 09:51 WILIAM CHACKO MD Sep 04, 2017 10:39
== END 2017-11-27 | disposition home or self-care (01) ==
LOC: SDC 07:55
PROVIDERS: ATTEND Surgery
DX: R78.81 Bacteremia (principal); B95.0 Streptococcus, group A, as the cause of diseases classified elsewhere
CPT/HCPCS: 96365

== ENCOUNTER 2019-08-13 05:17 | Emergency (ER) | payer BC, OTHER ==
[~2019-08-13] VITALS: Ht 170 cm; Wt 115.9 kg
[~2019-08-13 05:17] MED LIST changes: -CLINDAMYCIN 900 MG/50 ML IVPB 50 ML IV ONE; -CLINDAMYCIN 900 MG/NS 50 ML IVPB IV SCH
[2019-08-13 05:55] LABS: BASOPHILS % (AUTO) 0 % (0-10); EOSINOPHILS # (AUTO) 0.1 10^3/uL (0.0-0.3); EOSINOPHILS % (AUTO) 1 % (0-10); HEMATOCRIT 43 % (40-54); LYMPHOCYTES # (AUTO) 0.8 X 10^3 (1.0-4.0); LYMPHOCYTES % (AUTO) 9 % (12-44); MEAN CORPUSCULAR HEMOGLOBIN 29 PG (25-34); MEAN CORPUSCULAR HGB CONC 35 G/DL (32-36); MEAN CORPUSCULAR VOLUME 82 FL (80-99); MEAN PLATELET VOLUME 9.4 FL (7.4-10.4); MONOCYTES # (AUTO) 0.9 X 10^3 (0.0-1.0); MONOCYTES % (AUTO) 10 % (0-12); NEUTROPHILS # (AUTO) 7.4 X 10^3 (1.8-7.8); NEUTROPHILS % (AUTO) 80 % (42-75); PLATELET COUNT 178 10^3/uL (130-400); RED CELL DISTRIBUTION WIDTH 12.3 % (10.0-14.5); WHITE BLOOD COUNT 9.3 10^3/uL (4.3-11.0)
[2019-08-13 05:56] LABS: BILIRUBIN,URINE NEGATIVE (NEGATIVE); CLARITY,URINE CLEAR; COLOR,URINE YELLOW; GLUCOSE, URINE (UA) NEGATIVE (NEGATIVE); KETONES,URINE NEGATIVE (NEGATIVE); LEUKOCYTE ESTERASE ,URINE NEGATIVE (NEGATIVE); NITRITE,URINE NEGATIVE (NEGATIVE); PH,URINE 5.5 (5-9); PROTEIN,URINE TRACE (NEGATIVE)
[2019-08-13] MEDS ORDERED: KETOROLAC 30 MG/ML VIAL IVP ONE (06:00)
[2019-08-13] MEDS ORDERED: ONDANSETRON 4 MG/2 ML (SDV) Z0FRAN IVP ONE (06:00)
[2019-08-13 06:04] LABS: BACTERIA,URINE NEGATIVE /HPF; RBC,URINE 0-2 /HPF; SQUAMOUS EPITHELIAL CELL,UR 0-2 /HPF; URINE OTHER FEW SPERM /HPF; WBC,URINE RARE /HPF
[2019-08-13 06:06] LABS: ALANINE AMINOTRANSFERASE 26 U/L (0-55); ALBUMIN 4.5 GM/DL (3.2-4.5); ALKALINE PHOSPHATASE 71 U/L (40-136); BILIRUBIN,TOTAL 0.6 MG/DL (0.1-1.0); BUN/CREATININE RATIO 12; CALCIUM 9.2 MG/DL (8.5-10.1); CARBON DIOXIDE 21 MMOL/L (21-32); CHLORIDE 105 MMOL/L (98-107); CREATININE SERUM 0.97 MG/DL (0.60-1.30); GFR ESTIMATED > 60; GLUCOSE 110 MG/DL (70-105); POTASSIUM 3.9 MMOL/L (3.6-5.0); SODIUM 137 MMOL/L (135-145); TOTAL PROTEIN 7.3 GM/DL (6.4-8.2)
--- NOTE | 2019-08-13 06:48 | ED Abdominal Pain ---
General Chief Complaint: Abdominal/GI Problems Stated Complaint: ABD PAIN Source of Information: Patient Exam Limitations: No Limitations History of Present Illness Date Seen by Provider: Aug 13, 2019 Time Seen by Provider: 05:39 Initial Comments Patient presents to ER by private conveyance from home with chief complaint that yesterday he was having some back pains and went to the chiropractor and then that evening he started having some left lower quadrant abdominal pain. It's 7 out of 10, sharp, unrelenting. He has not taken anything for the pain this morning. It was not letting him sleep so he decided come the ER to have it checked out. He has had a couple colonoscopies in the past as well as had his appendix removed. No history of diverticulitis. He is having diarrhea for the past 24 hours without blood in it. No vomiting but he is having nausea. His pain does not radiate anywhere except towards his back where he was originally having pain. He has no history of kidney stones. No dysuria or hematuria. No fevers or chills. He takes lisinopril 2.5 mg for hypertension and is followed by Dr. Simmons. Allergies and Home Medications Allergies Coded Allergies: No Known Drug Allergies (Unverified , 08/21/17) Home Medications Amoxicillin/Potassium Clav 1 Each Tablet, 1 EACH PO BID Prescribed by: SHELBY ROMERO on 08/28/17 0920 Clindamycin HCl 150 Mg Capsule, 450 MG PO Q8H Prescribed by: SHELBY ROMERO on 08/28/17 0920 Hydrocodone/Acetaminophen 1 Each Tablet, 1 TAB PO Q4H PRN for PAIN-MODERATE, (Reported) Patient Home Medication List Home Medication List Reviewed: Yes Review of Systems Review of Systems Constitutional: No chills, No diaphoresis EENTM: No Blurred Vision, No Double Vision Respiratory: Denies Cough, Denies Shortness of Air Cardiovascular: Denies Chest Pain, Denies Edema Gastrointestinal: Denies Constipated, Denies Diarrhea, Denies Nausea Genitourinary: Denies Burning, Denies Discharge Past [id number] Hx Patient Social History Alcohol Use: Occasionally Uses Number of Drinks Today: GG Alcohol Beverage of Choice: Beer, Whiskey Recreational Drug Use: No Smoking Status: Never a Smoker 2nd Hand Smoke Exposure: No Recent Foreign Travel: No Contact w/Someone Who Travel: No Recent Hopitalizations: No Physical Abuse: No Sexual Abuse: No Mistreated: No Fear: No Seasonal Allergies Seasonal Allergies: No Past Medical History Surgeries: Yes (WART REMOVED) Appendectomy, Tonsillectomy Respiratory: No Cardiac: No Neurological: No Reproductive Disorders: No Genitourinary: No Gastrointestinal: No Musculoskeletal: No Endocrine: No HEENT: No Cancer: No Psychosocial: No Integumentary: Yes Recent Skin Changes Blood Disorders: No Adverse Reaction/Blood Tranf: No Family Medical History Alzheimer's disease Dementia Diabetes mellitus Hypertension Diabetes Physical Exam Vital Signs Vital Signs - First Documented 08/13/19 05:29 Temp 36.5 Pulse 92 Resp 18 B/P (MAP) 126/76 (93) O2 Delivery Room Air Capillary Refill : Height/Weight/BMI Height: 6'2.00" Weight: 194lbs. 8.0oz. 88.469209il; 25.0 BMI Method:Stated General Appearance: WD/WN, mild distress HEENT: PERRL/EOMI, pharynx normal Neck: full range of motion, normal inspection Respiratory: chest non-tender, lungs clear, normal breath sounds, no respiratory distress, no accessory muscle use Cardiovascular: normal peripheral pulses, regular rate, rhythm Peripheral Pulses: 2+ Dorsalis Pedis (R), 2+ Left Dors-Pedis (L), 2+ Radial Pulses (R), 2+ Radial Pulses (L) Gastrointestinal: normal bowel sounds, soft, no organomegaly; No guarding, No rebound; tenderness (left lower quadrant, mild), other ( negative for psoas sign or mesenteric signs) Extremities: normal range of motion, non-tender, normal inspection, normal capillary refill Neurologic/Psychiatric: alert, normal mood/affect, oriented x 3 Skin: normal color, warm/dry Progress/Results/Core Measures Results/Orders Lab Results Laboratory Tests Test 08/13/19 05:33 08/13/19 05:38 Range/Units White Blood Count 9.3 4.3-11.0 10^3/uL Red Blood Count 5.27 4.35-5.85 10^6/uL Hemoglobin 15.0 13.3-17.7 G/DL Hematocrit 43 40-54 % Mean Corpuscular Volume 82 80-99 FL Mean Corpuscular Hemoglobin 29 25-34 PG Mean Corpuscular Hemoglobin Concent 35 32-36 G/DL Red Cell Distribution Width 12.3 10.0-14.5 % Platelet Count 178 130-400 10^3/uL Mean Platelet Volume 9.4 7.4-10.4 FL Neutrophils (%) (Auto) 80 H 42-75 % Lymphocytes (%) (Auto) 9 L 12-44 % Monocytes (%) (Auto) 10 0-12 % Eosinophils (%) (Auto) 1 0-10 % Basophils (%) (Auto) 0 0-10 % Neutrophils # (Auto) 7.4 1.8-7.8 X 10^3 Lymphocytes # (Auto) 0.8 L 1.0-4.0 X 10^3 Monocytes # (Auto) 0.9 0.0-1.0 X 10^3 Eosinophils # (Auto) 0.1 0.0-0.3 10^3/uL Basophils # (Auto) 0.0 0.0-0.1 10^3/uL Sodium Level 137 135-145 MMOL/L Potassium Level 3.9 3.6-5.0 MMOL/L Chloride Level 105 98-107 MMOL/L Carbon Dioxide Level 21 21-32 MMOL/L Anion Gap 11 5-14 MMOL/L Blood Urea Nitrogen 12 7-18 MG/DL Creatinine 0.97 0.60-1.30 MG/DL Estimat Glomerular Filtration Rate > 60 BUN/Creatinine Ratio 12 Glucose Level 110 H 70-105 MG/DL Calcium Level 9.2 8.5-10.1 MG/DL Corrected Calcium 8.8 8.5-10.1 MG/DL Total Bilirubin 0.6 0.1-1.0 MG/DL Aspartate Amino Transf (AST/SGOT) 19 5-34 U/L Alanine Aminotransferase (ALT/SGPT) 26 0-55 U/L Alkaline Phosphatase 71 40-136 U/L Total Protein 7.3 6.4-8.2 GM/DL Albumin 4.5 3.2-4.5 GM/DL Urine Color YELLOW Urine Clarity CLEAR Urine pH 5.5 5-9 Urine Specific [place] >=1.030 1.016-1.022 Urine Protein TRACE NEGATIVE Urine Glucose (UA) NEGATIVE NEGATIVE Urine Ketones NEGATIVE NEGATIVE Urine Nitrite NEGATIVE NEGATIVE Urine Bilirubin NEGATIVE NEGATIVE Urine Urobilinogen 0.2 < = 1.0 MG/DL Urine Leukocyte Esterase NEGATIVE NEGATIVE Urine RBC (Auto) NEGATIVE NEGATIVE Urine RBC 0-2 /HPF Urine WBC RARE /HPF Urine Squamous Epithelial Cells 0-2 /HPF Urine Crystals NONE /LPF Urine Bacteria NEGATIVE /HPF Urine Casts NONE /LPF Urine Mucus LARGE H /LPF Urine Other FEW SPERM H /HPF Urine Culture Indicated NO My Orders Orders - ANGELITO NUNN Ketorolac Injection (Toradol Injection) (08/13/19 06:00) Ondansetron Injection (Zofran Injectio (08/13/19 06:00) Cbc With Automated Diff (08/13/19 05:46) Comprehensive Metabolic Panel (08/13/19 05:46) Ua Culture If Indicated (08/13/19 05:46) Ed Iv/Invasive Line Start (08/13/19 05:47) Medications Given in ED Current Medications Medications Dose Ordered Sig/Aye Route Start Time Stop Time Status Last Admin Dose Admin Ketorolac Tromethamine 30 mg ONCE ONCE IVP 08/13/19 06:00 08/13/19 06:01 DC 08/13/19 05:59 30 MG Ondansetron HCl 4 mg ONCE ONCE IVP 08/13/19 06:00 08/13/19 06:01 DC 08/13/19 05:59 4 MG Vital Signs/I&O 08/13/19 05:29 Temp 36.5 Pulse 92 Resp 18 B/P (MAP) 126/76 (93) O2 Delivery Room Air Progress Progress Note : Time: 07:05 Progress Note After Toradol and Zofran the patient's symptoms are nearly resolved. He is very comfortable sleeping in bed. Labs are unremarkable. His vital signs are asepticphysical exam remains non-mesenteric. We'll allow him to follow up outpatient as necessary for was likely a viral colitis. Departure Impression Primary Impression: Gastroenteritis and colitis, viral Disposition: 01 HOME, SELF-CARE Condition: Stable Departure-Patient Inst. Decision time for Depature: 07:08 Referrals: DEVIKA SIMMONS MD (PCP/Family) Primary Care Physician Patient Instructions: [id number] Add. Discharge Instructions: Drink plenty of fluids. Stick with a bland diet of bananas, rice, applesauce and toast until your symptoms improve. You may use Imodium 2 tablets followed by one tablet every 4 hours afterwards or loose watery stools. Tylenol and ibuprofen as necessary for pain. If your symptoms persist more than 5-7 days then you should follow-up with your primary care doctor for reevaluation. Zofran 1 tablet under the tongue every 6 hours as needed for nausea. All discharge instructions reviewed with patient and/or family. Voiced understanding. Scripts Ondansetron (Ondansetron Odt) 4 Mg Tab.rapdis 4 MG PO Q6H PRN for NAUSEA/VOMITING, #8 TAB 0 Refills Prov: ANGELITO NUNN 08/13/19 Work/School Note: Work Release Form Date Seen in the Emergency Department: Aug 13, 2019 Return to Work: Aug 14, 2019 Restrictions: No Restrictions ANGELITO NUNN Aug 13, 2019 06:48 POS
[2019-08-13] MEDS ORDERED: ONDA4TAB11 PO (07:17)
[2019-08-13 07:23] VITALS: BP 121/73
== END 2019-08-13 07:28 | disposition home or self-care (01) ==
LOC: EDUNIT# 05:17 → ER 05:19
DX: A08.4 Viral intestinal infection, unspecified (principal); Z90.49 Acquired absence of other specified parts of digestive tract; Z90.89 Acquired absence of other organs; Z82.49 Family history of ischemic heart disease and other diseases of the circulatory system
CPT/HCPCS: 36415; 80053; 81000; 85025; 96374; 96375

== ENCOUNTER 2020-06-23 00:17 | Emergency (ER) | payer OTHER ==
[~2020-06-23] VITALS: Ht 190 cm; Wt 105.0 kg
[~2020-06-23 00:17] MED LIST changes: +ACHYD1T PO; -HYDR-3820 PO; +ONDA4TAB11 PO
[2020-06-23 00:24] VITALS: BP 145/88
[2020-06-23] MEDS ORDERED: LISI2.5T (00:30)
[2020-06-23] MEDS ORDERED: cefTRIAXone 1,000 MG/2.86 ml vial (IM ONLY) IM STA (00:39)
[2020-06-23] MEDS ORDERED: LIDOCAINE 1% INJ 20 ML 20 ML VIAL INJ ONE (00:45)
[2020-06-23] MEDS ORDERED: CEPH-507 PO (00:46)
--- NOTE | 2020-06-23 00:47 | ED EENT ---
History of Present Illness General Chief Complaint: Eye Problems Stated Complaint: BLURRY VISION,WHITES YELLOW,SWOLLEN Nursing Triage Note: bilateral eye infection/swelling Source: patient Exam Limitations: no limitations History of Present Illness Date Seen by Provider: Jun 23, 2020 Time Seen by Provider: 00:30 Initial Comments Patient ER by private conveyance with chief complaint that he woke up 3:00 this morning with swelling and irritation and purulence coming from his right eye. Throughout the day at spread of his left eye. He called Dr. Snyder and was started on some eyedrops with a steroid and tobramycin. He did take 1 dose this evening and feels like it's getting worse. No fevers nausea vomiting. Allergies and Home Medications Allergies Coded Allergies: No Known Drug Allergies (Unverified , 08/21/17) Home Medications Amoxicillin/Potassium Clav 1 Each Tablet, 1 EACH PO BID Prescribed by: SHELBY ROMERO on 08/28/17 0920 Clindamycin HCl 150 Mg Capsule, 450 MG PO Q8H Prescribed by: SHELBY ROMERO on 08/28/17 0920 Hydrocodone Bit/Acetaminophen 1 Each Tablet, 1 TAB PO Q4H PRN for PAIN-MODERATE, (Reported) Ondansetron 4 Mg Tab.rapdis, 4 MG PO Q6H PRN for NAUSEA/VOMITING Prescribed by: ANGELITO NUNN on 08/13/19 0717 Patient Home Medication List Home Medication List Reviewed: Yes Review of Systems Review of Systems Constitutional: No chills, No diaphoresis, No fever Eyes: See HPI; Denies Blindness; Drainage, Inflammation, Pain Ears: Denies Dizziness, Denies Pain Nose: denies clots, denies congestion Mouth: denies clots, denies pain, denies swelling All Other Systems Reviewed Negative Unless Noted: Yes Past Shlkjwj-Ddkwzh-Zdmlch Hx Patient Social History Alcohol Use: Occasionally Uses Number of Drinks Today: GG Alcohol Beverage of Choice: Beer, Whiskey Recreational Drug Use: No Smoking Status: Current Someday Smoker Type Used: Cigarettes 2nd Hand Smoke Exposure: No Recent Foreign Travel: No Contact w/Someone Who Travel: No Recent Infectious Disease Expo: No Recent Hopitalizations: No Immunizations Up To Date Tetanus Booster (TDap): Less than 5yrs Seasonal Allergies Seasonal Allergies: Yes Past Medical History Surgeries: Yes (WART REMOVED) Appendectomy, Tonsillectomy Respiratory: No Cardiac: Yes Hypertension Neurological: No Reproductive Disorders: No Genitourinary: No Gastrointestinal: No Musculoskeletal: No Endocrine: No HEENT: No Cancer: No Psychosocial: No Integumentary: No Recent Skin Changes Blood Disorders: No Adverse Reaction/Blood Tranf: No Family Medical History Alzheimer's disease Dementia Diabetes mellitus Hypertension Diabetes Physical Exam Vital Signs Vital Signs - First Documented 06/23/20 00:24 Temp 36.0 Pulse 100 Resp 18 B/P (MAP) 145/88 (107) Pulse Ox 96 O2 Delivery Room Air Height, Weight, BMI Height: 6'2.00" Weight: 194lbs. 8.0oz. [id number]; 29.00 BMI Method:Stated General Appearance: WD/WN, mild distress Eyes: bilateral eye conjunctival inflammation, bilateral eye lid inflammation, bilateral eye other (bilateral periorbital mild edema right worse than left.) Ears: bilateral ear auricle normal, bilateral ear canal normal, bilateral ear TM normal Nose: normal inspection; No active bleeding Mouth/Throat: normal mouth inspection, pharynx normal; No dental tenderness Progress/Results/Core Measures Results/Orders My Orders Orders - ANGELITO NUNN Ceftriaxone For Im Use (Rocephin For Im (06/23/20 00:39) Lidocaine 1% Inj 20 Ml (Xylocaine 1% Inj (06/23/20 00:45) Vital Signs/I&O 06/23/20 00:24 Temp 36.0 Pulse 100 Resp 18 B/P (MAP) 145/88 (107) Pulse Ox 96 O2 Delivery Room Air Blood Pressure Mean: 107 Progress Progress Note : Time: 00:44 Progress Note Maybe starting some preorbital cellulitis just in the bilateral eyelids right worse than left. We'll give him a shot of Rocephin and encourage him to continue taking the drops and follow-up with the eye doctor tomorrow. Aseptic vital signs. Departure Impression Primary Impression: Bacterial conjunctivitis of both eyes Additional Impression: Cellulitis of periorbital region of both eyes Disposition: 01 HOME, SELF-CARE Condition: Stable Departure-Patient Inst. Decision time for Depature: 00:44 Referrals: LAURA WHITMAN OD,LOCAL PHYSICIAN (PCP) Primary Care Physician Patient Instructions: Orbital Cellulitis (DC), Conjunctivitis ([place]) Add. Discharge Instructions: Tylenol, Motrin and warm compresses applied as often as necessary for pain. Continue taking the eyedrops. Tomorrow grape picker the Keflex and take one capsule 4 times a day. Tomorrow call Dr. Whitman's office and request follow-up same day if possible. All discharge instructions reviewed with patient and/or family. Voiced understanding. Scripts Cephalexin (Keflex) 500 Mg Capsule 500 MG PO QIDACHS for 7 Days, #28 CAP 0 Refills Prov: ANGELITO NUNN 06/23/20 Work/School Note: Work Release Form Date Seen in the Emergency Department: Jun 23, 2020 Return to Work: Jun 26, 2020 Restrictions: No Restrictions Copy Copies To 1: LAURA WHITMAN OD, TITUS J Jun 23, 2020 00:47
== END 2020-06-23 00:56 | disposition home or self-care (01) ==
LOC: EDUNIT# 00:17 → ER 00:20
DX: H10.89 Other conjunctivitis (principal); B96.89 Other specified bacterial agents as the cause of diseases classified elsewhere; H05.013 Cellulitis of bilateral orbits; I10 Essential (primary) hypertension; F17.210 Nicotine dependence, cigarettes, uncomplicated
CPT/HCPCS: 99284